=== PATIENT | female | born 1940 | race Caucasian/White ===

== ENCOUNTER 2019-06-16 18:01 | Inpatient (IN) | payer MEDICARE, MEDICAID ==
[~2019-06-16] VITALS: Ht 165.1 cm; Wt 50.0 kg
--- NOTE | 2019-06-16 19:08 | NUR ---
Patient complains of CP from the lobby. She is pulled into 19 and ekg will be performed. ACS ordered.
[2019-06-16 19:31] LABS: BASOPHILS # (AUTO) 0.1 X10'3 (0-0.2); EOSINOPHILS # (AUTO) 0.2 X10'3 (0-0.9); EOSINOPHILS % (AUTO) 2.8 % (0-6); HEMATOCRIT 34.7 % (35.0-45.0); HEMOGLOBIN 11.7 g/dl (12.0-16.0); MEAN CORPUSCULAR HEMOGLOBIN 32.7 PG (27.0-31.0); MEAN CORPUSCULAR HGB CONC 33.6 g/dL (33.0-36.5); MEAN CORPUSCULAR VOLUME 97.2 FL (78-98); MEAN PLATELET VOLUME 7.4 FL (7.4-10.4); MONOCYTES # (AUTO) 0.8 X10'3 (0-0.9); MONOCYTES % (AUTO) 8.5 % (2-12); NEUTROPHILS # (AUTO) 5.8 X10'3 (1.8-7.7); NEUTROPHILS % (AUTO) 65.7 % (42-75); PLATELET COUNT 421 X10'3 (140-440); RED BLOOD COUNT 3.57 X10'6 (4.20-5.60); RED CELL DISTRIBUTION WIDTH 12.9 % (11.5-14.5); WHITE BLOOD COUNT 8.9 X10'3 (4.5-11.0)
[2019-06-16] MEDS ORDERED: acetaminophen 325mg/10.15ml oral unit dose solution PO ONE (19:35)
[2019-06-16 19:45] LABS: PARTIAL THROMBOPLASTIN TIME 30 SECONDS (22-32)
[2019-06-16 19:47] LABS: ALANINE AMINOTRANSFERASE 23 U/L (12-78); ALBUMIN 3.6 G/DL (3.4-5.0); ALBUMIN/GLOBULIN RATIO 0.8 (1.1-1.5); ALKALINE PHOSPHATASE 163 IU/L (46-116); ANION GAP 7 (8-16); ASPARTATE AMINO TRANSFERASE 26 U/L (10-37); BILIRUBIN,TOTAL 0.1 MG/DL (0.1-1.0); BLOOD UREA NITROGEN 21 MG/DL (7-18); BUN/CREATININE RATIO 22.3 (6.6-38.0); CALCIUM 9.8 MG/DL (8.5-10.1); CHLORIDE 101 MMOL/L (99-107); CREATININE 0.94 MG/DL (0.40-0.90); GLUCOSE 94 MG/DL (70-104); POTASSIUM 4.5 MMOL/L (3.5-5.1); SODIUM 136 MMOL/L (135-145); TOTAL CARBON DIOXIDE 28.1 MMOL/L (24-32); TOTAL PROTEIN 7.9 G/DL (6.4-8.2); eGFR 57 ML/MIN
[2019-06-16] MEDS ORDERED: iohexol 350MG/ML 100ml bottle IV ONE (20:46)
[2019-06-16 21:03] LABS: CLARITY,URINE CLEAR (Clear); COLOR,URINE YELLOW (Yellow); GLUCOSE, URINE NEGATIVE (Neg); KETONES,URINE NEGATIVE (Neg); LEUKOCYTE ESTERASE ,URINE NEGATIVE (Neg); NITRITES, URINE NEGATIVE (Neg); OCCULT BLOOD,URINE SMALL (Neg); PROTEIN,URINE 100 mg/dl (Neg); UROBILINOGEN,URINE 0.2 E.U/dL (0.2-1.0)
[2019-06-16 21:07] LABS: UA COLLECTION TYPE CLN CATCH MIDSTREAM
[2019-06-16 21:15] LABS: BACTERIA,URINE 3+ /HPF (Neg); RBC,URINE 0-2 /HPF (0-2); SQUAMOUS EPITHELIAL CELL,UR FEW /LPF (FEW); WBC,URINE 0-4 /HPF (0-4)
[2019-06-16] MEDS ORDERED: SYN0.088T PO (21:33)
[2019-06-16] MEDS ORDERED: DIAZ5TAB4 PO (21:35)
[2019-06-16] MEDS ORDERED: DIAZ2TAB3 PO (21:39)
[2019-06-16] MEDS ORDERED: mag hydrox/Alum hydrox/simeth 30ml oral suspension PO PRN (22:05)
[2019-06-16] MEDS ORDERED: HYDROcodone/acetaminophen 5mg/325mg tablet PO PRN (22:05)
[2019-06-16] MEDS ORDERED: ondansetron/PF 4mg/2ml inj IV PRN (22:05)
[2019-06-16] MEDS ORDERED: magnesium hydroxide 30ml (MOM) UD suspension PO PRN (22:05)
[2019-06-16] MEDS ORDERED: acetaminophen 325mg tablet PO PRN (22:05)
--- NOTE | 2019-06-16 22:08 | NUR ---
Patient up to bedside commode with help.
[2019-06-16] MEDS: normal saline 1000ml 1,000 ML IV SCH (22:26)
[2019-06-16] MEDS: azithromycin/NS 500mg/250ml 250 ML IV SCH (22:27)
--- NOTE | 2019-06-17 00:04 | NUR ---
Patient in room PCU 3018. I have received report from Elsi MITCHELL and had the opportunity to ask questions and assume patient care.
[2019-06-17 00:05] VITALS: BP 158/83
[2019-06-17] MEDS: acetaminophen 325mg tablet PO PRN ×3 (01:48→18:01)
[2019-06-17 01:49] LABS: BASOPHILS # (AUTO) 0.1 X10'3 (0-0.2); BASOPHILS % (AUTO) 0.7 % (0-1); EOSINOPHILS # (AUTO) 0.2 X10'3 (0-0.9); EOSINOPHILS % (AUTO) 2.2 % (0-6); HEMATOCRIT 33.5 % (35.0-45.0); HEMOGLOBIN 11.2 g/dl (12.0-16.0); LYMPHOCYTES # (AUTO) 2.2 X10'3 (1.1-4.8); LYMPHOCYTES % (AUTO) 21.9 % (21-51); MEAN CORPUSCULAR HEMOGLOBIN 32.3 PG (27.0-31.0); MEAN CORPUSCULAR HGB CONC 33.5 g/dL (33.0-36.5); MEAN CORPUSCULAR VOLUME 96.5 FL (78-98); MEAN PLATELET VOLUME 7.5 FL (7.4-10.4); MONOCYTES # (AUTO) 0.9 X10'3 (0-0.9); MONOCYTES % (AUTO) 8.6 % (2-12); NEUTROPHILS # (AUTO) 6.6 X10'3 (1.8-7.7); NEUTROPHILS % (AUTO) 66.6 % (42-75); PLATELET COUNT 400 X10'3 (140-440); RED BLOOD COUNT 3.48 X10'6 (4.20-5.60)
[2019-06-17 02:00] VITALS: BP 132/80
[2019-06-17 02:01] LABS: ALBUMIN 3.3 G/DL (3.4-5.0); ANION GAP 10 (8-16); BLOOD UREA NITROGEN 16 MG/DL (7-18); BUN/CREATININE RATIO 17.2 (6.6-38.0); CALCIUM 9.7 MG/DL (8.5-10.1); CHLORIDE 103 MMOL/L (99-107); CREATININE 0.93 MG/DL (0.40-0.90); GLUCOSE 91 MG/DL (70-104); SODIUM 138 MMOL/L (135-145); TOTAL CARBON DIOXIDE 25.1 MMOL/L (24-32); eGFR 58 ML/MIN
[2019-06-17 06:00] VITALS: BP 146/78
--- NOTE | 2019-06-17 06:12 | NUR ---
Problems reprioritized. Patient report given, questions answered & plan of care reviewed with Morena MITCHELL.
--- NOTE | 2019-06-17 06:45 | NUR ---
Patient in room PCU 3018. I have received report from PAULA He and had the opportunity to ask questions and assume patient care.
[2019-06-17] MEDS: levoTHYROXINE 88mcg tablet PO SCH (08:21)
[2019-06-17] MEDS: CefTRIAXone/D5W-Rocephin 1gm 50 ML IV SCH (08:21)
[2019-06-17] MEDS: azithromycin/NS 500mg/250ml 250 ML IV SCH (09:00)
--- NOTE | 2019-06-17 11:56 | NUR ---
Message to Dr. Hernandez - Mr. Pierson RM 3010 - ABG back. CO2 is 86.00 Mr. Duarte RM [id number] - Thank you, KRYSTLE Berg ext [phone] Addendum: 06/17/19 at 1157 by Morena Vanessa RN ERROR - wrong chart
--- NOTE | 2019-06-17 15:52 | NUR ---
Malnutrition consult: Pt admit coughing blood hx lower appetite recently per consult. Pt seen by CINDY at bedside and reports low appetite but also unable to tolerate most solids r/t dentures not fitting properly and needing replacement top teeth in addition to bottom teeth left out since they don't fit. Pt reports drinks ensures TID at home for main intake trying to gain weight. Pt agrees to vanilla ensure enlive TIDWM; MD notified pending verification; vanilla ensure pudding BIDBD. Also strawberry allergy, dislikes beef and berries, requests vanilla yogurt TIDWM, and tuna w/ dao for main protein at lunches. Also reports no milk to drink. To receive chicken noodle soup tonight for dinner. Pt to receive soft to chew foods but also declines chopped and ground meats w/ gravy or additional texture modifications. Dietary notified of preferences. Son is bringing in generic ensure brand from outside as well since pt enjoys. Pt has visible severe muscle/fat wasting in addition to mild weakness and meets severe malnutrition criteria at this time; MD notified. Will monitor for ONS acceptance and PO diet tolerance. Rec: 1. continue regular diet; soft to chew foods r/t dentures 2. honor pt food preferences; see above 3. vanilla ensure enlive TIDWM pending MD verification 4. vanilla yogurt TID and vanilla ensure pudding BIDBD 5. MVI per MD approval 6. weekly wts Addendum: 06/17/19 at [address] Amended: Links added. Addendum: 06/17/19 at [address] Malnutrition consult: Pt admit coughing blood hx lower appetite recently per consult. Pt seen by RD at bedside and reports low appetite but also unable to tolerate most solids r/t dentures not fitting properly and needing replacement top teeth in addition to bottom teeth left out since they don't fit. Pt reports drinks ensures TID at home for main intake trying to gain weight. Pt agrees to vanilla ensure enlive TIDWM; MD notified pending verification; vanilla ensure pudding BIDBD. Also strawberry allergy, dislikes beef and berries, requests vanilla yogurt TIDWM, and tuna w/ dao for main protein at lunches. Also reports no milk to drink. To receive chicken noodle soup tonight for dinner. Pt to receive soft to chew foods but also declines chopped and ground meats w/ gravy or additional texture modifications. Dietary notified of preferences. Son is bringing in generic ensure brand from outside as well since pt enjoys. Pt/family provided written/verbal malnutrition ed w/ RD contact information and ONS coupons. Pt has visible severe muscle/fat wasting in addition to mild weakness and meets severe malnutrition criteria at this time; notified. Will monitor for ONS acceptance and PO diet tolerance. Rec: 1. continue regular diet; soft to chew foods r/t dentures 2. honor pt food preferences; see above 3. vanilla ensure enlive TIDWM pending MD verification 4. vanilla yogurt TID and vanilla ensure pudding BIDBD 5. MVI per MD approval 6. weekly wts
[2019-06-17 18:00] VITALS: BP 156/120
[2019-06-17] MEDS: lactose-reduced food (Ensure Enlive) - 237ml bottle PO SCH (18:00)
--- NOTE | 2019-06-17 18:16 | NUR ---
Message to Dr. Naveed Slaughter, rm 3018 B - She requests Valium. She takes 5 mg in the am and 4 mg 6 hours later for esophageal spasm. It is on her med reconciliation form. Thanks, Tracie ext [phone].
--- NOTE | 2019-06-17 18:27 | NUR ---
Problems reprioritized. Patient report given, questions answered & plan of care reviewed with [].
--- NOTE | 2019-06-17 18:37 | NUR ---
Patient in room PCU 3018. I have received report from PAULA Berg and had the opportunity to ask questions and assume patient care.
[2019-06-17] MEDS: diazepam 2mg tablet PO PRN (19:32)
[2019-06-17] MEDS: lactobacillus rhamnosus 10,000 MMU CELLS/CAPSULE PO SCH (19:32)
[2019-06-17 22:00] VITALS: BP 135/75
[2019-06-17] MEDS: normal saline 1000ml 1,000 ML IV SCH (22:46)
[2019-06-18 02:00] VITALS: BP 142/77
[2019-06-18 05:21] LABS: BASOPHILS # (AUTO) 0.1 X10'3 (0-0.2); BASOPHILS % (AUTO) 0.8 % (0-1); EOSINOPHILS # (AUTO) 0.2 X10'3 (0-0.9); EOSINOPHILS % (AUTO) 3.2 % (0-6); HEMOGLOBIN 10.9 g/dl (12.0-16.0); LYMPHOCYTES # (AUTO) 2.1 X10'3 (1.1-4.8); LYMPHOCYTES % (AUTO) 30.5 % (21-51); MEAN CORPUSCULAR HEMOGLOBIN 32.5 PG (27.0-31.0); MEAN CORPUSCULAR HGB CONC 33.1 g/dL (33.0-36.5); MEAN CORPUSCULAR VOLUME 98.3 FL (78-98); MEAN PLATELET VOLUME 7.6 FL (7.4-10.4); MONOCYTES # (AUTO) 0.6 X10'3 (0-0.9); MONOCYTES % (AUTO) 9.6 % (2-12); NEUTROPHILS # (AUTO) 3.8 X10'3 (1.8-7.7); NEUTROPHILS % (AUTO) 55.9 % (42-75); PLATELET COUNT 370 X10'3 (140-440); RED BLOOD COUNT 3.36 X10'6 (4.20-5.60); RED CELL DISTRIBUTION WIDTH 12.9 % (11.5-14.5); WHITE BLOOD COUNT 6.8 X10'3 (4.5-11.0)
[2019-06-18 05:32] LABS: ANION GAP 10 (8-16); BLOOD UREA NITROGEN 15 MG/DL (7-18); CALCIUM 9.5 MG/DL (8.5-10.1); CHLORIDE 107 MMOL/L (99-107); CREATININE 0.88 MG/DL (0.40-0.90); GLUCOSE 96 MG/DL (70-104); POTASSIUM 4.6 MMOL/L (3.5-5.1); SODIUM 143 MMOL/L (135-145); TOTAL CARBON DIOXIDE 26.4 MMOL/L (24-32); eGFR 62 ML/MIN
[2019-06-18 06:00] VITALS: BP 144/88
--- NOTE | 2019-06-18 06:29 | NUR ---
Problems reprioritized. Patient report given, questions answered & plan of care reviewed with PAULA Nichole.
--- NOTE | 2019-06-18 06:49 | NUR ---
Patient in room PCU 3018. I have received report from Marlena MITCHELL and had the opportunity to ask questions and assume patient care.
[2019-06-18] MEDS: CefTRIAXone/D5W-Rocephin 1gm 50 ML IV SCH (07:50)
[2019-06-18] MEDS: diazepam 5mg tablet PO SCH (07:50)
[2019-06-18] MEDS: levoTHYROXINE 88mcg tablet PO SCH (07:50)
[2019-06-18] MEDS: lactobacillus rhamnosus 10,000 MMU CELLS/CAPSULE PO SCH ×2 (07:50→20:23)
[2019-06-18] MEDS: azithromycin 250mg tablet PO SCH (07:51)
[2019-06-18] MEDS: lactose-reduced food (Ensure Enlive) - 237ml bottle PO SCH (08:00)
--- NOTE | 2019-06-18 08:14 | NUR ---
Pt. refused Medication Zithromax tab PO. Stating that she has an allergy to it. She was offered information including IV doses tolerated without reaction. She States that the reaction is C-Diff colitis in about 1 months time. Pharmacy is informed of this stated reaction to Zithromax.
[2019-06-18 11:00] VITALS: BP 166/86
[2019-06-18] MEDS: acetaminophen 325mg tablet PO PRN (11:09)
[2019-06-18] MEDS: normal saline 1000ml 1,000 ML IV SCH (14:06)
[2019-06-18] MEDS: diazepam 2mg tablet PO PRN ×2 (14:41→20:22)
[2019-06-18 15:00] VITALS: BP 154/86
--- NOTE | 2019-06-18 18:36 | NUR ---
Problems reprioritized. Patient report given, questions answered & plan of care reviewed with Simon MITCHELL .
[2019-06-18 19:00] VITALS: BP 135/82
[2019-06-18 23:00] VITALS: BP 142/81
[2019-06-19 03:00] VITALS: BP 138/73
[2019-06-19 05:46] LABS: BASOPHILS # (AUTO) 0.1 X10'3 (0-0.2); BASOPHILS % (AUTO) 0.9 % (0-1); EOSINOPHILS # (AUTO) 0.2 X10'3 (0-0.9); EOSINOPHILS % (AUTO) 3.8 % (0-6); HEMATOCRIT 30.5 % (35.0-45.0); HEMOGLOBIN 10.1 g/dl (12.0-16.0); LYMPHOCYTES % (AUTO) 34.9 % (21-51); MEAN CORPUSCULAR HEMOGLOBIN 32.4 PG (27.0-31.0); MEAN CORPUSCULAR HGB CONC 33.2 g/dL (33.0-36.5); MEAN CORPUSCULAR VOLUME 97.9 FL (78-98); MEAN PLATELET VOLUME 7.9 FL (7.4-10.4); MONOCYTES # (AUTO) 0.6 X10'3 (0-0.9); MONOCYTES % (AUTO) 10.5 % (2-12); NEUTROPHILS # (AUTO) 2.9 X10'3 (1.8-7.7); NEUTROPHILS % (AUTO) 49.9 % (42-75); PLATELET COUNT 348 X10'3 (140-440); RED BLOOD COUNT 3.12 X10'6 (4.20-5.60); WHITE BLOOD COUNT 5.9 X10'3 (4.5-11.0)
[2019-06-19 06:00] VITALS: BP 147/78
[2019-06-19 06:01] LABS: ALBUMIN 2.7 G/DL (3.4-5.0); ANION GAP 7 (8-16); BLOOD UREA NITROGEN 18 MG/DL (7-18); BUN/CREATININE RATIO 20.9 (6.6-38.0); CALCIUM 9.1 MG/DL (8.5-10.1); CHLORIDE 108 MMOL/L (99-107); CREATININE 0.86 MG/DL (0.40-0.90); GLUCOSE 90 MG/DL (70-104); POTASSIUM 4.4 MMOL/L (3.5-5.1); SODIUM 140 MMOL/L (135-145); TOTAL CARBON DIOXIDE 24.8 MMOL/L (24-32); eGFR 63 ML/MIN
--- NOTE | 2019-06-19 06:10 | NUR ---
Patient in room PCU 3018. I have received report from PAULA Montes and had the opportunity to ask questions and assume patient care. Patient is currently resting in bed, bed locked and low, call light in reach, no acute distress, will continue to monitor.
[2019-06-19] MEDS: CefTRIAXone/D5W-Rocephin 1gm 50 ML IV SCH (07:54)
[2019-06-19] MEDS: azithromycin 250mg tablet PO SCH (07:57)
[2019-06-19] MEDS: lactobacillus rhamnosus 10,000 MMU CELLS/CAPSULE PO SCH ×2 (07:57→20:40)
[2019-06-19] MEDS: levoTHYROXINE 88mcg tablet PO SCH (07:57)
[2019-06-19] MEDS: diazepam 5mg tablet PO SCH (07:58)
[2019-06-19] MEDS: normal saline 1000ml 1,000 ML IV SCH (10:03)
[2019-06-19 11:00] VITALS: BP 179/88
[2019-06-19] MEDS: diazepam 2mg tablet PO PRN (14:19)
[2019-06-19] MEDS: apixaban 5mg tablet PO SCH ×2 (14:22→20:00)
[2019-06-19] MEDS: acetaminophen 325mg tablet PO PRN (14:29)
[2019-06-19 15:00] VITALS: BP 187/94
--- NOTE | 2019-06-19 18:29 | NUR ---
Problems reprioritized. Patient report given, questions answered & plan of care reviewed with PAULA Torrez. Patient currently resting in bed, bed locked and low, call light in reach, stable at shift change. Patient currently resting in bed, bed locked and low, call light in reach, stable at shift change.
[2019-06-19 19:00] VITALS: BP 165/84
--- NOTE | 2019-06-19 19:20 | NUR ---
Patient in room PCU 3018. I have received report from Arely MITCHELL and had the opportunity to ask questions and assume patient care.
--- NOTE | 2019-06-19 20:57 | NUR ---
Patient refused apixaban from fear of coughing up blood again.
[2019-06-19 23:00] VITALS: BP 144/79
--- NOTE | 2019-06-20 01:57 | NUR ---
Patient has orders for 0800 abx and continuous fluids, but PIV was infiltrated on last shift and patient refused a new PIV. MD was notified by telephone and said to notify the morning MD instead. Will pass this info to AM handoff report.
[2019-06-20] MEDS: acetaminophen 325mg tablet PO PRN ×2 (04:26→11:36)
[2019-06-20 06:00] VITALS: BP 149/84
[2019-06-20] MEDS: normal saline 1000ml 1,000 ML IV SCH (06:03)
--- NOTE | 2019-06-20 06:28 | NUR ---
Patient refused vital signs at 0200.
--- NOTE | 2019-06-20 06:30 | NUR ---
Patient in room PCU 3018. I have received report from Lore MITCHELL and had the opportunity to ask questions and assume patient care.
[2019-06-20 07:03] LABS: BASOPHILS # (AUTO) 0.1 X10'3 (0-0.2); BASOPHILS % (AUTO) 0.8 % (0-1); EOSINOPHILS # (AUTO) 0.2 X10'3 (0-0.9); EOSINOPHILS % (AUTO) 2.5 % (0-6); HEMATOCRIT 31.7 % (35.0-45.0); HEMOGLOBIN 10.8 g/dl (12.0-16.0); LYMPHOCYTES # (AUTO) 2.1 X10'3 (1.1-4.8); LYMPHOCYTES % (AUTO) 26.2 % (21-51); MEAN CORPUSCULAR HEMOGLOBIN 32.9 PG (27.0-31.0); MEAN CORPUSCULAR HGB CONC 34.1 g/dL (33.0-36.5); MEAN CORPUSCULAR VOLUME 96.6 FL (78-98); MEAN PLATELET VOLUME 8.1 FL (7.4-10.4); MONOCYTES # (AUTO) 0.7 X10'3 (0-0.9); MONOCYTES % (AUTO) 8.7 % (2-12); NEUTROPHILS # (AUTO) 5.1 X10'3 (1.8-7.7); NEUTROPHILS % (AUTO) 61.8 % (42-75); PLATELET COUNT 361 X10'3 (140-440); RED BLOOD COUNT 3.28 X10'6 (4.20-5.60); RED CELL DISTRIBUTION WIDTH 12.9 % (11.5-14.5); WHITE BLOOD COUNT 8.2 X10'3 (4.5-11.0)
[2019-06-20 07:18] LABS: ANION GAP 8 (8-16); BLOOD UREA NITROGEN 18 MG/DL (7-18); BUN/CREATININE RATIO 19.1 (6.6-38.0); CALCIUM 9.4 MG/DL (8.5-10.1); CHLORIDE 104 MMOL/L (99-107); CREATININE 0.94 MG/DL (0.40-0.90); GLUCOSE 88 MG/DL (70-104); POTASSIUM 4.3 MMOL/L (3.5-5.1); SODIUM 137 MMOL/L (135-145); TOTAL CARBON DIOXIDE 25.2 MMOL/L (24-32); eGFR 57 ML/MIN
--- NOTE | 2019-06-20 07:48 | NUR ---
Problems reprioritized. Patient report given, questions answered & plan of care reviewed with Janneth MITCHELL.
[2019-06-20] MEDS: CefTRIAXone/D5W-Rocephin 1gm 50 ML IV SCH (08:00)
[2019-06-20] MEDS: azithromycin 250mg tablet PO SCH (08:40)
[2019-06-20] MEDS: apixaban 5mg tablet PO SCH (08:40)
[2019-06-20] MEDS: diazepam 5mg tablet PO SCH (08:42)
[2019-06-20] MEDS: levoTHYROXINE 88mcg tablet PO SCH (08:42)
[2019-06-20] MEDS: lactobacillus rhamnosus 10,000 MMU CELLS/CAPSULE PO SCH (08:42)
--- NOTE | 2019-06-20 09:25 | NUR ---
PIV infiltrated. Notified MD that patient did not receive IV rocephin this AM due to infiltration and pt is refusing another IV. Per MD, patient going home today.
[2019-06-20 11:00] VITALS: BP 140/79
[2019-06-20] MEDS ORDERED: LEVO500T89 PO (11:45)
[2019-06-20] MEDS ORDERED: APIX5TAB3 PO (11:45)
--- NOTE | 2019-06-20 12:37 | NUR ---
Patient stable for discharge home today with son. All DC instructions given to patient. Prescriptions called into [facility] on [address]. IV out and TELE monitor removed. All belongings sent with patient.
--- NOTE | 2019-06-20 15:30 | NUR ---
Patient called after discharging from hospital, regarding oral antibiotic Levofloxacin in pill form cannot be crushed. She requires pills to be crushed because of esophageal strictures. The pharmacist advised her to not crush this pill and to see if a oral solution could be ordered. [facility] [address] does not carry Levofloxacin in oral solution. I called around to numerous pharmacies and it was not available anywhere. [facility] pharmacist advised us of other antibiotics in oral solution form: Keflex, Augmentin, Cefdinir, Zithromax. I paged Dr. Clemente to see if he wanted to change the antibiotic, and am waiting for response.
== END 2019-06-20 12:30 | disposition home health service (06) | DRG 175 ==
LOC: ER 18:02 → PCU 3S 23:33
PROVIDERS: ADMIT Hospitalist; ATTEND Family Medicine
PROC: B32T1ZZ Computerized Tomography (CT Scan) of Left Pulmonary Artery using Low Osmolar Contrast (ICD-10-PCS; principal; 2019-06-16)
PROC: B3201ZZ Computerized Tomography (CT Scan) of Thoracic Aorta using Low Osmolar Contrast (ICD-10-PCS; 2019-06-16)
PROC: B32S1ZZ Computerized Tomography (CT Scan) of Right Pulmonary Artery using Low Osmolar Contrast (ICD-10-PCS; 2019-06-16)
DX: I26.99 Other pulmonary embolism without acute cor pulmonale (principal); J18.1 Lobar pneumonia, unspecified organism; J47.0 Bronchiectasis with acute lower respiratory infection; R04.2 Hemoptysis; K22.4 Dyskinesia of esophagus; M19.90 Unspecified osteoarthritis, unspecified site; E03.9 Hypothyroidism, unspecified; M79.7 Fibromyalgia; Z90.710 Acquired absence of both cervix and uterus; Z90.49 Acquired absence of other specified parts of digestive tract; Z90.721 Acquired absence of ovaries, unilateral; Z79.01 Long term (current) use of anticoagulants
CPT/HCPCS: 36415; 71046; 71275; 80048; 80053; 81001; 84443; 84484; 85025; 85610; 85730; 87077; 87081; 87088; 87186; 93005; 93306; 93970; 96365; 97110; 97112; 97116; 97161; 97530; 99285; G0378; J0456; J0696; J7030; Q9967

== ENCOUNTER 2019-09-28 15:47 | Emergency (ER) | payer MEDICARE, MEDICAID ==
[~2019-09-28] VITALS: Ht 152.4 cm; Wt 43.0 kg
[~2019-09-28 15:47] MED LIST: APIX5TAB3 PO; DIAZ2TAB3 PO; DIAZ5TAB4 PO; SYN0.088T PO
[2019-09-28 16:40] LABS: BASOPHILS # (AUTO) 0.1 X10'3 (0-0.2); BASOPHILS % (AUTO) 1.2 % (0-1); EOSINOPHILS # (AUTO) 0.1 X10'3 (0-0.9); EOSINOPHILS % (AUTO) 0.7 % (0-6); HEMOGLOBIN 11.6 g/dl (12.0-16.0); LYMPHOCYTES # (AUTO) 2.4 X10'3 (1.1-4.8); LYMPHOCYTES % (AUTO) 25.8 % (21-51); MEAN CORPUSCULAR HEMOGLOBIN 32.6 PG (27.0-31.0); MEAN CORPUSCULAR HGB CONC 34.1 g/dL (33.0-36.5); MEAN CORPUSCULAR VOLUME 95.6 FL (78-98); MEAN PLATELET VOLUME 8.2 FL (7.4-10.4); MONOCYTES # (AUTO) 0.8 X10'3 (0-0.9); MONOCYTES % (AUTO) 8.7 % (2-12); NEUTROPHILS # (AUTO) 5.9 X10'3 (1.8-7.7); NEUTROPHILS % (AUTO) 63.6 % (42-75); PLATELET COUNT 444 X10'3 (140-440); RED BLOOD COUNT 3.56 X10'6 (4.20-5.60); RED CELL DISTRIBUTION WIDTH 12.9 % (11.5-14.5); WHITE BLOOD COUNT 9.3 X10'3 (4.5-11.0)
[2019-09-28 16:57] LABS: ALANINE AMINOTRANSFERASE 22 U/L (12-78); ALBUMIN 3.4 G/DL (3.4-5.0); ALBUMIN/GLOBULIN RATIO 0.8 (1.1-1.5); ALKALINE PHOSPHATASE 134 IU/L (46-116); ANION GAP 9 (8-16); ASPARTATE AMINO TRANSFERASE 24 U/L (10-37); BILIRUBIN,TOTAL 0.2 MG/DL (0.1-1.0); BLOOD UREA NITROGEN 19 MG/DL (7-18); BUN/CREATININE RATIO 21.1 (6.6-38.0); CALCIUM 9.6 MG/DL (8.5-10.1); CHLORIDE 103 MMOL/L (99-107); GLUCOSE 89 MG/DL (70-104); POTASSIUM 4.4 MMOL/L (3.5-5.1); SODIUM 138 MMOL/L (135-145); TOTAL CARBON DIOXIDE 26.5 MMOL/L (24-32); TOTAL PROTEIN 7.5 G/DL (6.4-8.2); eGFR 60 ML/MIN
[2019-09-28] MEDS ORDERED: normal saline 1000ML IV soln IVB ONE (17:20)
[2019-09-28] MEDS ORDERED: acetaminophen 325mg tablet PO ONE (18:00)
[2019-09-28 20:48] VITALS: BP 158/72
== END 2019-09-28 20:12 | disposition home or self-care (01) ==
LOC: ER 15:47
DX: R07.89 Other chest pain (principal); R06.00 Dyspnea, unspecified; R51 Headache; Z90.710 Acquired absence of both cervix and uterus; Z91.018 Allergy to other foods; Z79.899 Other long term (current) drug therapy
CPT/HCPCS: 36415; 71045; 80053; 84484; 85025; 93005; 99284; J7030

== ENCOUNTER 2019-09-30 14:11 | Emergency (ER) | payer MEDICAID, MEDICARE ==
[2019-09-30] MEDS ORDERED: aspirin 81mg tab.chew PO ONE (14:20)
[2019-09-30 14:52] LABS: BASOPHILS # (AUTO) 0.1 X10'3 (0-0.2); BASOPHILS % (AUTO) 0.6 % (0-1); EOSINOPHILS # (AUTO) 0.1 X10'3 (0-0.9); EOSINOPHILS % (AUTO) 0.6 % (0-6); HEMATOCRIT 33.3 % (35.0-45.0); HEMOGLOBIN 11.2 g/dl (12.0-16.0); LYMPHOCYTES # (AUTO) 1.9 X10'3 (1.1-4.8); LYMPHOCYTES % (AUTO) 18.1 % (21-51); MEAN CORPUSCULAR HEMOGLOBIN 32.5 PG (27.0-31.0); MEAN CORPUSCULAR HGB CONC 33.7 g/dL (33.0-36.5); MEAN CORPUSCULAR VOLUME 96.6 FL (78-98); MEAN PLATELET VOLUME 7.8 FL (7.4-10.4); MONOCYTES % (AUTO) 9.2 % (2-12); NEUTROPHILS # (AUTO) 7.5 X10'3 (1.8-7.7); NEUTROPHILS % (AUTO) 71.5 % (42-75); PLATELET COUNT 463 X10'3 (140-440); RED BLOOD COUNT 3.45 X10'6 (4.20-5.60); RED CELL DISTRIBUTION WIDTH 12.8 % (11.5-14.5); WHITE BLOOD COUNT 10.5 X10'3 (4.5-11.0)
[2019-09-30 15:10] LABS: ALANINE AMINOTRANSFERASE 23 U/L (12-78); ALBUMIN 3.5 G/DL (3.4-5.0); ALBUMIN/GLOBULIN RATIO 0.9 (1.1-1.5); ALKALINE PHOSPHATASE 158 IU/L (46-116); ANION GAP 5 (8-16); ASPARTATE AMINO TRANSFERASE 24 U/L (10-37); BILIRUBIN,TOTAL 0.1 MG/DL (0.1-1.0); BLOOD UREA NITROGEN 18 MG/DL (7-18); BUN/CREATININE RATIO 17.1 (6.6-38.0); CALCIUM 9.7 MG/DL (8.5-10.1); CHLORIDE 102 MMOL/L (99-107); CREATININE 1.05 MG/DL (0.40-0.90); GLUCOSE 104 MG/DL (70-104); POTASSIUM 4.3 MMOL/L (3.5-5.1); SODIUM 138 MMOL/L (135-145); TOTAL CARBON DIOXIDE 31.1 MMOL/L (24-32); TOTAL PROTEIN 7.4 G/DL (6.4-8.2); eGFR 50 ML/MIN
[2019-09-30] MEDS ORDERED: APIX5TAB3 PO (18:06)
[2019-09-30 18:32] VITALS: BP 155/75
== END 2019-09-30 18:34 | disposition home or self-care (01) ==
LOC: ER 14:12
DX: J40 Bronchitis, not specified as acute or chronic (principal); R07.89 Other chest pain; R53.1 Weakness; Z87.01 Personal history of pneumonia (recurrent); Z90.710 Acquired absence of both cervix and uterus; Z91.018 Allergy to other foods; Z79.2 Long term (current) use of antibiotics; Z79.899 Other long term (current) drug therapy
CPT/HCPCS: 36415; 71045; 80053; 83880; 84484; 85025; 87502; 87503; 93005; 99284

== ENCOUNTER 2019-10-26 16:09 | Emergency (ER) | payer MEDICARE ==
[~2019-10-26] VITALS: Ht 152.4 cm; Wt 44.7 kg
[2019-10-26] MEDS ORDERED: normal saline 1000ML IV soln IVB ONE (16:45)
[2019-10-26] MEDS ORDERED: HYDROcodone/acetaminophen 5mg/325mg tablet PO ONE (16:45)
[2019-10-26] MEDS ORDERED: ondansetron 4mg rapidly disintigrating tab PO ONE (16:45)
[2019-10-26 17:10] LABS: BASOPHILS # (AUTO) 0.1 X10'3 (0-0.2); BASOPHILS % (AUTO) 0.5 % (0-1); EOSINOPHILS % (AUTO) 0.4 % (0-6); HEMATOCRIT 34.4 % (35.0-45.0); HEMOGLOBIN 11.6 g/dl (12.0-16.0); LYMPHOCYTES # (AUTO) 1.9 X10'3 (1.1-4.8); LYMPHOCYTES % (AUTO) 15.4 % (21-51); MEAN CORPUSCULAR HEMOGLOBIN 31.8 PG (27.0-31.0); MEAN CORPUSCULAR HGB CONC 33.7 g/dL (33.0-36.5); MEAN CORPUSCULAR VOLUME 94.5 FL (78-98); MEAN PLATELET VOLUME 7.8 FL (7.4-10.4); MONOCYTES # (AUTO) 0.8 X10'3 (0-0.9); MONOCYTES % (AUTO) 6.4 % (2-12); NEUTROPHILS # (AUTO) 9.3 X10'3 (1.8-7.7); NEUTROPHILS % (AUTO) 77.3 % (42-75); PLATELET COUNT 447 X10'3 (140-440); RED BLOOD COUNT 3.64 X10'6 (4.20-5.60); RED CELL DISTRIBUTION WIDTH 13.3 % (11.5-14.5); WHITE BLOOD COUNT 12.1 X10'3 (4.5-11.0)
[2019-10-26 17:25] LABS: ALANINE AMINOTRANSFERASE 20 U/L (12-78); ALBUMIN 3.7 G/DL (3.4-5.0); ALKALINE PHOSPHATASE 136 IU/L (46-116); ANION GAP 8 (8-16); ASPARTATE AMINO TRANSFERASE 27 U/L (10-37); BILIRUBIN,TOTAL 0.2 MG/DL (0.1-1.0); BLOOD UREA NITROGEN 19 MG/DL (7-18); BUN/CREATININE RATIO 19.4 (6.6-38.0); CALCIUM 10.3 MG/DL (8.5-10.1); CHLORIDE 103 MMOL/L (99-107); CREATININE 0.98 MG/DL (0.40-0.90); GLUCOSE 95 MG/DL (70-104); LIPASE 199 U/L (73-393); POTASSIUM 4.3 MMOL/L (3.5-5.1); SODIUM 140 MMOL/L (135-145); TOTAL CARBON DIOXIDE 28.6 MMOL/L (24-32); TOTAL PROTEIN 7.5 G/DL (6.4-8.2); eGFR 54 ML/MIN
[2019-10-26] MEDS ORDERED: acetaminophen 325mg/10.15ml oral unit dose solution PO ONE (17:45)
[2019-10-26] MEDS ORDERED: morphine 4 MG/ML inj SYRINge IV ONE (18:00)
[2019-10-26] MEDS ORDERED: PRED20TA PO (19:17)
[2019-10-26] MEDS ORDERED: AMOX-422 PO (19:17)
[2019-10-26] MEDS ORDERED: ONDA4TAB6 PO (19:18)
--- NOTE | 2019-10-26 19:21 | NUR ---
PT STATES HER BACK IS IN PAIN AND SHE WANTS A CT SCAN. PT REFUSED MORPHINE, SHE STATES SHE HAS AN ALLERGY TO IT. WHEN ASKED SHE STATES "MY BLOOD PRESSURE DROPS." PT EDUCATED THAT HYPOTENSION IS A SIDE EFFECT NOT AN ALLERGY AND THAT HER BP IS HIGH AT THIS TIME, SHE COULD POSSIBLY TOLERATE MORPHINE FOR HER PAIN 05/09. PT IS REFUSING. SHE WAS GIVEN PO TYLENOL. AWAITING FOR PROVIDER TO INSTRUCT OF CT RESULTS AND PENDING FLU SWAB RESULTS.
[2019-10-26 19:28] LABS: CLARITY,URINE CLEAR (Clear); COLOR,URINE YELLOW (Yellow); GLUCOSE, URINE NEGATIVE (Neg); KETONES,URINE NEGATIVE (Neg); LEUKOCYTE ESTERASE ,URINE NEGATIVE (Neg); NITRITES, URINE NEGATIVE (Neg); OCCULT BLOOD,URINE SMALL (Neg); PH,URINE 7.5 (4.8-8.0); PROTEIN,URINE >=300 mg/dl (Neg); UROBILINOGEN,URINE 0.2 E.U/dL (0.2-1.0)
[2019-10-26] MEDS ORDERED: TAM75C PO (19:34)
[2019-10-26 20:13] LABS: UA COLLECTION TYPE STRAIGHT CATH
[2019-10-26 20:15] LABS: BACTERIA,URINE NONE SEEN /HPF (Neg); RBC,URINE 0-2 /HPF (0-2); WBC,URINE NONE SEEN /HPF (0-4)
[2019-10-26 20:16] LABS: SQUAMOUS EPITHELIAL CELL,UR FEW /LPF (FEW)
[2019-10-26 21:37] VITALS: BP 164/84
== END 2019-10-26 21:40 | disposition home or self-care (01) ==
LOC: ER 16:09
DX: J18.9 Pneumonia, unspecified organism (principal); B34.9 Viral infection, unspecified; R10.31 Right lower quadrant pain; R10.32 Left lower quadrant pain; Z90.710 Acquired absence of both cervix and uterus; Z91.018 Allergy to other foods; Z88.1 Allergy status to other antibiotic agents; Z79.899 Other long term (current) drug therapy
CPT/HCPCS: 36415; 71045; 74176; 80053; 81001; 83605; 83690; 85025; 87502; 87503; 99284; J7030

== ENCOUNTER 2019-10-31 16:08 | Emergency (ER) | payer MEDICARE ==
[~2019-10-31] VITALS: Ht 152.4 cm; Wt 45.5 kg
[~2019-10-31 16:08] MED LIST changes: +AMOX-422 PO; +ONDA4TAB6 PO; +PRED20TA PO; +TAM75C PO
[2019-10-31] MEDS ORDERED: loperamide 2mg capsule PO ONE (16:55)
[2019-10-31] MEDS ORDERED: normal saline 1000ml 1,000 ML IV ONE (16:55)
[2019-10-31] MEDS ORDERED: ondansetron/PF 4mg/2ml inj IV ONE (16:55)
[2019-10-31 17:07] LABS: BASOPHILS # (AUTO) 0.1 X10'3 (0-0.2); EOSINOPHILS # (AUTO) 0.3 X10'3 (0-0.9); EOSINOPHILS % (AUTO) 3.2 % (0-6); HEMATOCRIT 33.1 % (35.0-45.0); HEMOGLOBIN 11.3 g/dl (12.0-16.0); LYMPHOCYTES # (AUTO) 1.8 X10'3 (1.1-4.8); LYMPHOCYTES % (AUTO) 17.6 % (21-51); MEAN CORPUSCULAR HEMOGLOBIN 32.3 PG (27.0-31.0); MEAN CORPUSCULAR HGB CONC 34.1 g/dL (33.0-36.5); MEAN CORPUSCULAR VOLUME 94.8 FL (78-98); MEAN PLATELET VOLUME 8.2 FL (7.4-10.4); MONOCYTES # (AUTO) 0.7 X10'3 (0-0.9); MONOCYTES % (AUTO) 6.9 % (2-12); NEUTROPHILS # (AUTO) 7.3 X10'3 (1.8-7.7); NEUTROPHILS % (AUTO) 71.3 % (42-75); PLATELET COUNT 381 X10'3 (140-440); RED BLOOD COUNT 3.49 X10'6 (4.20-5.60); RED CELL DISTRIBUTION WIDTH 13.3 % (11.5-14.5); WHITE BLOOD COUNT 10.2 X10'3 (4.5-11.0)
[2019-10-31 17:14] LABS: ALANINE AMINOTRANSFERASE 21 U/L (12-78); ALBUMIN 3.6 G/DL (3.4-5.0); ALKALINE PHOSPHATASE 127 IU/L (46-116); ANION GAP 9 (8-16); ASPARTATE AMINO TRANSFERASE 25 U/L (10-37); BILIRUBIN,TOTAL 0.3 MG/DL (0.1-1.0); BLOOD UREA NITROGEN 17 MG/DL (7-18); BUN/CREATININE RATIO 16.5 (6.6-38.0); CHLORIDE 103 MMOL/L (99-107); CREATININE 1.03 MG/DL (0.40-0.90); GLUCOSE 101 MG/DL (70-104); LIPASE 165 U/L (73-393); SODIUM 137 MMOL/L (135-145); TOTAL CARBON DIOXIDE 24.9 MMOL/L (24-32); TOTAL PROTEIN 7.3 G/DL (6.4-8.2); eGFR 51 ML/MIN
--- NOTE | 2019-10-31 17:17 | NUR ---
Pt stated that she has difficulty swallowing pills.
[2019-10-31 18:03] LABS: CLARITY,URINE CLEAR (Clear); COLOR,URINE YELLOW (Yellow); GLUCOSE, URINE NEGATIVE (Neg); KETONES,URINE NEGATIVE (Neg); LEUKOCYTE ESTERASE ,URINE NEGATIVE (Neg); NITRITES, URINE NEGATIVE (Neg); OCCULT BLOOD,URINE MODERATE (Neg); PH,URINE 6.5 (4.8-8.0); PROTEIN,URINE 100 mg/dl (Neg); UROBILINOGEN,URINE 0.2 E.U/dL (0.2-1.0)
[2019-10-31 18:08] LABS: UA COLLECTION TYPE STRAIGHT CATH; WBC,URINE 0-4 /HPF (0-4)
[2019-10-31 18:09] LABS: BACTERIA,URINE NONE SEEN /HPF (Neg); MUCUS STRANDS FEW /LPF (Neg); SQUAMOUS EPITHELIAL CELL,UR NONE SEEN /LPF (FEW)
[2019-10-31 19:16] VITALS: BP 138/61
[2019-10-31] MEDS ORDERED: METR500T PO (19:25)
--- NOTE | 2019-11-01 14:54 | NUR ---
REQUESTED TO CALL PT BY THE PA TO FOLLOWUP ON DIARRHEA FROM YESTERDAYS VISIT. CALL WITH TO [employer] MAIL AND MSG LEFT, PROVIDER NOTIFED
== END 2019-10-31 20:08 | disposition home or self-care (01) ==
LOC: ER 16:09
DX: R19.7 Diarrhea, unspecified (principal); R10.31 Right lower quadrant pain; R10.32 Left lower quadrant pain; Z90.710 Acquired absence of both cervix and uterus; Z91.018 Allergy to other foods; Z79.899 Other long term (current) drug therapy
CPT/HCPCS: 36415; 80053; 81001; 83690; 85025; 96361; 96374; 99284; J2405; J7030

== ENCOUNTER 2022-03-09 13:09 | Inpatient (IN) | payer MEDICARE, MEDICAID ==
[~2022-03-09] VITALS: Ht 149.9 cm; Wt 60.1 kg
[~2022-03-09 13:09] MED LIST changes: -AMOX-422 PO; -PRED20TA PO; -TAM75C PO
[2022-03-09] MEDS ORDERED: LIDOcaine 2% 10ml TOPICAL JELLY (Urojet) TP ONE ×2 (13:45→15:50)
[2022-03-09] MEDS ORDERED: CefTRIAXone 2gm/NS 100ml IVPB 100 ML IV ONE (14:05)
[2022-03-09] MEDS ORDERED: normal saline 1000ML IV soln IVB ONE ×2 (14:40→15:25)
[2022-03-09 14:47] LABS: BASOPHILS % (AUTO) 0 % (0-1); EOSINOPHILS % (AUTO) 0 % (0-6); HEMATOCRIT 28.1 % (35.0-45.0); HEMOGLOBIN 8.6 g/dl (12.0-16.0); LYMPHOCYTES # (AUTO) 0.6 X10'3 (1.1-4.8); LYMPHOCYTES % (AUTO) 1.6 % (21-51); MEAN CORPUSCULAR HEMOGLOBIN 26.6 PG (27.0-31.0); MEAN CORPUSCULAR HGB CONC 30.6 g/dL (33.0-36.5); MEAN CORPUSCULAR VOLUME 86.7 FL (78-98); MEAN PLATELET VOLUME 7.4 FL (7.4-10.4); MONOCYTES # (AUTO) 1.4 X10'3 (0-0.9); MONOCYTES % (AUTO) 3.7 % (2-12); NEUTROPHILS # (AUTO) 36.4 X10'3 (1.8-7.7); NEUTROPHILS % (AUTO) 94.7 % (42-75); PLATELET COUNT 599 X10'3 (140-440); RED BLOOD COUNT 3.24 X10'6 (4.20-5.60); RED CELL DISTRIBUTION WIDTH 16.9 % (11.5-14.5)
[2022-03-09 14:50] LABS: CLARITY,URINE SLIGHTLY CLOUDY (Clear); COLOR,URINE YELLOW (Yellow); GLUCOSE, URINE NEGATIVE (Neg); KETONES,URINE NEGATIVE (Neg); LEUKOCYTE ESTERASE ,URINE NEGATIVE (Neg); NITRITES, URINE NEGATIVE (Neg); OCCULT BLOOD,URINE LARGE (Neg); PROTEIN,URINE 100 mg/dl (Neg); UROBILINOGEN,URINE 0.2 E.U/dL (0.2-1.0)
[2022-03-09 14:51] LABS: WHITE BLOOD COUNT 38.5 X10'3 (4.5-11.0)
[2022-03-09 14:54] LABS: UA COLLECTION TYPE FOLEY CATH
[2022-03-09] MEDS ORDERED: methylPREDNISolone sod succ 125mg/2ml vial IV ONE (14:55)
[2022-03-09] MEDS ORDERED: ipratropium/albuterol 3ml nebule NEB ONE (14:55)
[2022-03-09 14:58] LABS: SQUAMOUS EPITHELIAL CELL,UR MANY /LPF (FEW)
[2022-03-09 15:04] LABS: BACTERIA,URINE 1+ /HPF (Neg); RBC,URINE 20-50 /HPF (0-2)
[2022-03-09 15:05] LABS: TRANSITIONAL EPI CELLS,URINE FEW /HPF
[2022-03-09 15:05] LABS: ALANINE AMINOTRANSFERASE 59 U/L (12-78); ALBUMIN/GLOBULIN RATIO 0.4 (1.1-1.5); ALKALINE PHOSPHATASE 185 IU/L (46-116); ANION GAP 15 (8-16); ASPARTATE AMINO TRANSFERASE 112 U/L (10-37); BILIRUBIN,TOTAL 0.4 MG/DL (0.1-1.0); BLOOD UREA NITROGEN 129 MG/DL (7-18); BUN/CREATININE RATIO 26.3 (6.6-38.0); CALCIUM 9.6 MG/DL (8.5-10.1); CHLORIDE 104 MMOL/L (99-107); CREATININE 4.91 MG/DL (0.40-0.90); GLUCOSE 98 MG/DL (70-104); POTASSIUM 5.2 MMOL/L (3.5-5.1); SODIUM 139 MMOL/L (135-145); TOTAL CARBON DIOXIDE 20.4 MMOL/L (24-32); TOTAL PROTEIN 7.1 G/DL (6.4-8.2); eGFR 8 ML/MIN
[2022-03-09 15:12] LABS: AMORPHOUS URATES 2+
[2022-03-09 15:20] LABS: ANISOCYTOSIS 1+; PLATELET ESTIMATE INCREASED; TOTAL CELLS COUNTED 100
[2022-03-09 15:21] LABS: HYPOCHROMASIA 1+
[2022-03-09 15:46] LABS: ABG BASE EXCESS -13.8 mmol/L (-2.0-2.0); ABG HCO3 15.3 mmol/L (22.0-26.0); ABG OXYGEN SATURATION 94.3 % (94-97); ABG PCO2 (T) 51.2 mmHg (32.0-45.0); FCOHb 0.1 % (0.0-3.9); FMetHb 0.2 % (0.0-1.5); PATIENT TEMPERATURE 36.8; TOTAL HEMOGLOBIN 8.5 G/dl (12.0-16.0)
[2022-03-09] MEDS ORDERED: magnesium hydroxide 30ml (MOM) UD suspension PO PRN (15:50)
[2022-03-09] MEDS ORDERED: potassium CL 10mEq/100ml bag 100 ML IV PRN (15:50)
[2022-03-09] MEDS ORDERED: potassium Cl 20mEq/100mL bag 100 ML IV PRN (15:50)
[2022-03-09] MEDS ORDERED: magnesium 2GM in 50ml NS 50 ML IV PRN (15:50)
[2022-03-09] MEDS ORDERED: ondansetron/PF 4mg/2ml inj IV PRN (15:50)
[2022-03-09] MEDS ORDERED: magnesium 4gm in 100ml NS 100 ML IV PRN (15:50)
[2022-03-09] MEDS ORDERED: albuterol 2.5 MG/3 ML nebule NEB PRN (15:50)
[2022-03-09] MEDS ORDERED: POTASSIUM BICARB 20meq eff tab 20 MEQ TABLET.EFF PO PRN ×2 (15:50)
[2022-03-09] MEDS ORDERED: acetaminophen 325mg tablet PO PRN ×2 (15:50)
[2022-03-09] MEDS ORDERED: bisacodyl 10mg suppository rectal RC PRN (15:50)
--- NOTE | 2022-03-09 16:40 | NUR ---
SOFTWARE DEVELOPMENT MANAGER AT BEDSIDE.
--- NOTE | 2022-03-09 16:51 | NUR ---
TO CT SCAN.
[2022-03-09] MEDS ORDERED: normal saline 1000ml 1,000 ML IV SCH (17:00)
[2022-03-09 18:41] LABS: CREATINE KINASE 915 U/L (26-192)
[2022-03-09] MEDS ORDERED: vancomycin/NS 1 GM ADD-VANTAGE 250 ML X 1 DOSE IV PRN (18:50)
[2022-03-09] MEDS ORDERED: furosemide 10 MG/1 ML 10ml inj IV ONE (18:50)
[2022-03-09] MEDS: ringers solution, lacted 1,000 ML IV SCH (18:58)
[2022-03-09] MEDS ORDERED: vancomycin/NS 1 GM ADD-VANTAGE 250 ML IV SCH (19:00)
[2022-03-09 19:06] LABS: ABG BASE EXCESS -13.9 mmol/L (-2.0-2.0); ABG HCO3 14.8 mmol/L (22.0-26.0); ABG OXYGEN SATURATION 92.5 % (94-97); ABG PCO2 (T) 45.5 mmHg (32.0-45.0); ABG PO2 (T) 76.2 mmHg (75.0-100.0); ALLEN'S TEST POSITIVE; FCOHb 0.2 % (0.0-3.9); FLOW 40 L/min; FMetHb 0.1 % (0.0-1.5); FO2Hb 92.2 % (94-97); PATIENT TEMPERATURE 36.7; TOTAL HEMOGLOBIN 10.3 G/dl (12.0-16.0)
[2022-03-09] MEDS ORDERED: succinylcholine 20mg/ml inj IV ONE (19:21)
--- NOTE | 2022-03-09 19:30 | NUR ---
Patient observed having agonal and shallow breathing since this advertising copywriter came on shift at 1830. Patient appeared to not be taking in appropriate breaths. ABG drawn and senior quality assurance analyst consulted, given VO to intubate patient. Dr. El consulted and patient intubated at 1930. Etomidate and Rocuronium used for intubation. RT at [facility]. Patient became hypotensive following intubation, levophed started.
--- NOTE | 2022-03-09 19:34 | NUR ---
CALL JACE MAHAJAN TO UPDATE THE POC AT [phone].
[2022-03-09 19:45] VITALS: BP 63/42
[2022-03-09] MEDS: NORepinephrine 8mg/ 250ml NS 250 ML IV PRN (19:46)
[2022-03-09] MEDS: heparin, porcine 5000 units/ml vial SQ SCH (20:08)
[2022-03-09] MEDS: cefepime 1GM/NS ADD-VANTAGE 100 ML IV SCH (20:23)
--- NOTE | 2022-03-09 20:33 | NUR ---
[facility] Magistrate has been paged three times at this point to obtain orders for continued IV sedation. [address] Magistrate not picking up phone. Confirmed with hospital staff multiple times that correct number is on file.
--- NOTE | 2022-03-09 20:54 | NUR ---
Printer Slotter Helper attempted to be called multiple additional times. No response. supervisor agricultural education made aware. Dr. El consulted and given VO for Versed and Fentanyl.
[2022-03-09] MEDS ORDERED: midazolam 100mg in NS 100ml 100 ML IV PRN (20:55)
[2022-03-09] MEDS ORDERED: fentaNYL 50mcg/ml PF inj. 2,500 MCG in normal saline 250ml IV soln 200 ML IV SCH ×2 (20:55→21:04)
[2022-03-09 21:02] LABS: ABG BASE EXCESS -12.6 mmol/L (-2.0-2.0); ABG HCO3 14.7 mmol/L (22.0-26.0); ABG OXYGEN SATURATION 96.7 % (94-97); ABG PCO2 (T) 38.2 mmHg (32.0-45.0); ABG PO2 (T) 95.7 mmHg (75.0-100.0); ALLEN'S TEST POSITIVE; FCOHb 0.2 % (0.0-3.9); FMetHb 0.1 % (0.0-1.5); FO2Hb 96.4 % (94-97); PATIENT TEMPERATURE 36.7; PEEP 5 cm H2O; RESPIRATORY RATE 24 b/min; TIDAL VOLUME 375 mL; TOTAL HEMOGLOBIN 9.7 G/dl (12.0-16.0)
[2022-03-09 21:03] VITALS: BP 126/67
[2022-03-09 22:00] VITALS: BP 85/46
[2022-03-09] MEDS: FENTANYL-0.9 % NACL/PF 100 ML IV SCH (22:06)
[2022-03-09 22:35] VITALS: BP 96/44
[2022-03-09 23:00] VITALS: BP 84/44
[2022-03-10] VITALS (35 sets, daily range): BP systolic 76–124; BP diastolic 38–59
[2022-03-10] MEDS: metroNIDAZOLE-Flagyl 500mg/NS 100 ML IV SCH ×3 (00:16→15:29)
[2022-03-10] MEDS: sodium bicarbonate (8.4%) inj. 150 MEQ in dextrose 5%-water 1,000 ML IV SCH ×2 (01:24→14:05)
[2022-03-10] MEDS ORDERED: albumin (Human) 5% 250ml 250 ML IV ONE ×2 (01:45)
[2022-03-10] MEDS ORDERED: hydrocortisone sod succ/PF 100mg/2ml inj. IV ONE (01:45)
--- NOTE | 2022-03-10 02:30 | NUR ---
fecal disimpaction done, moderate amounts of hard formed stools removed
--- NOTE | 2022-03-10 02:36 | NUR ---
2130: I have received report from Barron MITCHELL and had the opportunity to ask questions and assume patient care. 2220: patient in room 2012. Called Dr Nicolas at 2330 to clarify orders and received new ones 0130: patient needing increased levophed, urine output decreasing and becoming more tachycardic, Dr Nicolas was called and made aware of patient condition and received new orders.
[2022-03-10 02:46] LABS: BASOPHILS % (AUTO) 0 % (0-1); EOSINOPHILS # (AUTO) 0.1 X10'3 (0-0.9); EOSINOPHILS % (AUTO) 0.4 % (0-6); HEMATOCRIT 26.3 % (35.0-45.0); HEMOGLOBIN 8.3 g/dl (12.0-16.0); LYMPHOCYTES # (AUTO) 0.5 X10'3 (1.1-4.8); LYMPHOCYTES % (AUTO) 2.4 % (21-51); MEAN CORPUSCULAR HEMOGLOBIN 27.8 PG (27.0-31.0); MEAN CORPUSCULAR HGB CONC 31.6 g/dL (33.0-36.5); MEAN CORPUSCULAR VOLUME 87.8 FL (78-98); MEAN PLATELET VOLUME 7.6 FL (7.4-10.4); MONOCYTES # (AUTO) 0.3 X10'3 (0-0.9); MONOCYTES % (AUTO) 1.3 % (2-12); NEUTROPHILS # (AUTO) 20.2 X10'3 (1.8-7.7); NEUTROPHILS % (AUTO) 95.9 % (42-75); PLATELET COUNT 458 X10'3 (140-440); RED BLOOD COUNT 2.99 X10'6 (4.20-5.60); RED CELL DISTRIBUTION WIDTH 17.6 % (11.5-14.5); WHITE BLOOD COUNT 21.1 X10'3 (4.5-11.0)
[2022-03-10] MEDS: vasopressin inj. 40 UNIT in dextrose 5%-water 50ml 38 ML IV SCH (02:55)
[2022-03-10 03:01] LABS: ABG BASE EXCESS -13.8 mmol/L (-2.0-2.0); ABG HCO3 13.9 mmol/L (22.0-26.0); ABG OXYGEN SATURATION 97.3 % (94-97); ABG PCO2 (T) 40.3 mmHg (32.0-45.0); ABG PO2 (T) 106.6 mmHg (75.0-100.0); FCOHb 0.2 % (0.0-3.9); FMetHb 0.5 % (0.0-1.5); FO2Hb 96.6 % (94-97); PATIENT TEMPERATURE 37.5; PEEP 8 cm H2O; RESPIRATORY RATE 24 b/min; TIDAL VOLUME 350 mL
[2022-03-10 03:02] LABS: ALBUMIN 1.2 G/DL (3.4-5.0); ANION GAP 16 (8-16); BLOOD UREA NITROGEN 118 MG/DL (7-18); BUN/CREATININE RATIO 29.5 (6.6-38.0); CALCIUM 8.3 MG/DL (8.5-10.1); CHLORIDE 113 MMOL/L (99-107); GLUCOSE 94 MG/DL (70-104); MAGNESIUM 2.1 MG/DL (1.5-2.4); PHOSPHORUS 6.1 MG/DL (2.3-4.5); POTASSIUM 4.7 MMOL/L (3.5-5.1); SODIUM 144 MMOL/L (135-145); TOTAL CARBON DIOXIDE 15.2 MMOL/L (24-32); VANCOMYCIN,RANDOM 20.3 UG/ML; eGFR 11 ML/MIN
[2022-03-10 03:10] LABS: OXYGEN SATURATION (MIXED VEN) 79.7 % (60-80); PO2 MIXED VENOUS (TEMP COR) 47.9 mmHg (35-46)
[2022-03-10] MEDS ORDERED: rocuronium 10mg/ml inj IV ONE (03:35)
[2022-03-10] MEDS ORDERED: etomidate 2mg/ml inj. ONE (03:35)
[2022-03-10] MEDS: NORepinephrine 8mg/ 250ml NS 250 ML IV PRN ×2 (05:25→17:46)
[2022-03-10] MEDS: ringers solution, lacted 1,000 ML IV SCH (05:26)
[2022-03-10 05:27] LABS: PLATELET ESTIMATE INCREASED; TOTAL CELLS COUNTED 100
[2022-03-10 05:28] LABS: ANISOCYTOSIS 1+
[2022-03-10 05:32] LABS: LARGE PLATELETS FEW
--- NOTE | 2022-03-10 06:16 | NUR ---
Problems reprioritized. Patient report given to Abida MITCHELL, questions answered & plan of care reviewed with .
[2022-03-10] MEDS: hydrocortisone sod succ/PF 100mg/2ml inj. IV SCH ×3 (07:26→20:21)
[2022-03-10] MEDS: heparin, porcine 5000 units/ml vial SQ SCH ×2 (07:27→20:21)
[2022-03-10] MEDS ORDERED: famotidine/PF 10 mg/ml inj IV SCH (08:00)
[2022-03-10] MEDS ORDERED: K and/or MAG REPLACEMENT MC SCH (08:00)
[2022-03-10] MEDS: cefepime 1GM/NS ADD-VANTAGE 100 ML IV SCH (08:37)
--- NOTE | 2022-03-10 08:48 | NUR ---
Dr. Duran rounded and ordered for a sputum sample to be sent and to stop the LR.
--- NOTE | 2022-03-10 10:40 | NUR ---
Initial: Pt brought in after being found down, admit for bilat PNA, acute renal failure, sepsis, and acute hypoxic and hypercapnic respiratory failure. Pt currently intubated and with and OGT in place per EMR though no TF consult at this time. Will place TF recommendations below for if expected prolonged intubation and to receive nutrition support. Noted pt with a low BMI using scaled weight. Unable to obtain information from pt d/t intubation and per MD note patient's son who was caring for pt just . Noted pt with reported and wt hx from 5164-6852 in EMR that resulted in a low BMI for age. Pt possibly chronically underweight. LBM 03/10, with moderate amounts of hard formed stools removed from fecal disimpaction per RN note. Will continue to follow closely. Recommendations: 1) IF TF, continuous Vital AF with 55 mL/hr goal. Begin at 25 mL/hr and advance by 30 mL Q8H as tolerated to goal rate. To provide 1320 mL total volume/day, 1584 kcal, 99 g protein, and 1071 mL water 2) IF TF, additional 85 mL water flush Q4H 3) IF TF, prealbumin q Saturday/; daily scaled weights 4) Routine bowel care Addendum: 03/10/22 at [address] Amended: Links added.
--- NOTE | 2022-03-10 11:50 | NUR ---
Report received from PAULA Tai. Assumed care of patient.
[2022-03-10 15:54] LABS: UA COLLECTION TYPE FOLEY CATH
[2022-03-10 15:55] LABS: CLARITY,URINE SLIGHTLY CLOUDY (Clear); COLOR,URINE YELLOW (Yellow); GLUCOSE, URINE NEGATIVE (Neg); KETONES,URINE NEGATIVE (Neg); LEUKOCYTE ESTERASE ,URINE NEGATIVE (Neg); NITRITES, URINE NEGATIVE (Neg); OCCULT BLOOD,URINE MODERATE (Neg); PROTEIN,URINE 30 mg/dl (Neg); UROBILINOGEN,URINE 0.2 E.U/dL (0.2-1.0)
[2022-03-10 16:05] LABS: TOTAL PROTEIN,URINE RANDOM 131.5 MG/DL
[2022-03-10 16:07] LABS: AMORPHOUS URATES 2+; BACTERIA,URINE FEW /HPF (Neg); FINE GRANULAR CAST 0-3 /LPF (NEGATIVE); SQUAMOUS EPITHELIAL CELL,UR FEW /LPF (FEW); WBC,URINE NONE SEEN /HPF (0-4)
[2022-03-10 16:32] LABS: UA EOSINOPHILS RARE EOS /HPF
[2022-03-10] MEDS: bumetanide 0.25mg/ml 4ml vial IV SCH (17:45)
--- NOTE | 2022-03-10 18:15 | NUR ---
Report given to PAULA Thapa
[2022-03-10] MEDS: FENTANYL-0.9 % NACL/PF 100 ML IV SCH (23:50)
[2022-03-11] VITALS (38 sets, daily range): BP systolic 87–135; BP diastolic 42–62
[2022-03-11] MEDS: metroNIDAZOLE-Flagyl 500mg/NS 100 ML IV SCH ×3 (00:12→16:26)
[2022-03-11] MEDS: sodium bicarbonate (8.4%) inj. 150 MEQ in dextrose 5%-water 1,000 ML IV SCH ×2 (02:23→13:57)
[2022-03-11] MEDS: hydrocortisone sod succ/PF 100mg/2ml inj. IV SCH ×4 (02:56→20:13)
[2022-03-11 03:10] LABS: BASOPHILS # (AUTO) 0.1 X10'3 (0-0.2); BASOPHILS % (AUTO) 0.2 % (0-1); EOSINOPHILS % (AUTO) 0.1 % (0-6); LYMPHOCYTES # (AUTO) 0.4 X10'3 (1.1-4.8); LYMPHOCYTES % (AUTO) 0.9 % (21-51); MEAN CORPUSCULAR HEMOGLOBIN 27.6 PG (27.0-31.0); MEAN CORPUSCULAR HGB CONC 32.4 g/dL (33.0-36.5); MEAN CORPUSCULAR VOLUME 85.4 FL (78-98); MEAN PLATELET VOLUME 8.2 FL (7.4-10.4); MONOCYTES # (AUTO) 0.6 X10'3 (0-0.9); MONOCYTES % (AUTO) 1.5 % (2-12); NEUTROPHILS # (AUTO) 40.6 X10'3 (1.8-7.7); NEUTROPHILS % (AUTO) 97.3 % (42-75); PLATELET COUNT 293 X10'3 (140-440); RED BLOOD COUNT 2.49 X10'6 (4.20-5.60); RED CELL DISTRIBUTION WIDTH 17.5 % (11.5-14.5)
[2022-03-11 03:28] LABS: ALBUMIN 1.5 G/DL (3.4-5.0); ANION GAP 11 (8-16); BLOOD UREA NITROGEN 104 MG/DL (7-18); BUN/CREATININE RATIO 29.4 (6.6-38.0); CHLORIDE 107 MMOL/L (99-107); CREATININE 3.54 MG/DL (0.40-0.90); GLUCOSE 195 MG/DL (70-104); MAGNESIUM 1.8 MG/DL (1.5-2.4); PHOSPHORUS 4.7 MG/DL (2.3-4.5); POTASSIUM 3.8 MMOL/L (3.5-5.1); SODIUM 142 MMOL/L (135-145); TOTAL CARBON DIOXIDE 24.4 MMOL/L (24-32); VANCOMYCIN,RANDOM 13.9 UG/ML; eGFR 12 ML/MIN
[2022-03-11 03:47] LABS: WHITE BLOOD COUNT 41.7 X10'3 (4.5-11.0)
[2022-03-11 03:48] LABS: HEMATOCRIT 21.2 % (35.0-45.0); HEMOGLOBIN 6.9 g/dl (12.0-16.0)
[2022-03-11 03:49] LABS: ABG BASE EXCESS -1.3 mmol/L (-2.0-2.0); ABG HCO3 23.4 mmol/L (22.0-26.0); ABG OXYGEN SATURATION 91.5 % (94-97); ABG PCO2 (T) 38.4 mmHg (32.0-45.0); ABG PO2 (T) 61.4 mmHg (75.0-100.0); ALLEN'S TEST Modified; FCOHb 0.3 % (0.0-3.9); FMetHb 0.7 % (0.0-1.5); FO2Hb 90.6 % (94-97); PATIENT TEMPERATURE 36.7; PEEP 8 cm H2O; RESPIRATORY RATE 24 b/min; TIDAL VOLUME 350 mL; TOTAL HEMOGLOBIN 7.6 G/dl (12.0-16.0)
[2022-03-11] MEDS: VANCOMYCIN LEVEL IV SCH (04:16)
[2022-03-11 06:40] LABS: ANISOCYTOSIS 1+; PLATELET ESTIMATE NORMAL; TOTAL CELLS COUNTED 100
[2022-03-11] MEDS: ipratropium/albuterol 3ml nebule NEB PRN ×2 (07:16→15:51)
[2022-03-11] MEDS ORDERED: cefepime 1GM/NS ADD-VANTAGE 100 ML IV SCH (08:00)
[2022-03-11] MEDS ORDERED: dextrose 50%-water 50ml dispensing syringe IV PRN (08:35)
[2022-03-11] MEDS ORDERED: DEXTROSE 15 GM of carb/4 tabs (each vial/BOTTLE has 4 tablets) PO PRN ×2 (08:35)
[2022-03-11] MEDS ORDERED: MESSAGE TO PHARMACY PO ONE (08:35)
[2022-03-11] MEDS ORDERED: glucagon, human recombinant 1mg kit SUBCUT PRN (08:35)
--- NOTE | 2022-03-11 08:42 | NUR ---
TF consult: See recs below. Noted pt has been started on NaBicarb/D5 at 100ml/hr providing additional 408kcals/day. Recommend changing to non dextrose containing solution per MD discretion if medically feasible once TF initiated. Recommendations: 1) Continuous TF using Vital AF with 55 mL/hr goal. Begin at 25 mL/hr and advance by 30 mL Q8H as tolerated to goal rate. To provide 1320 mL total volume/day, 1584 kcal, 99 g protein, and 1071 mL water 2) Additional 85 mL water flush Q4H 3) Prealbumin q Saturday/; daily scaled weights 4) Routine bowel care Addendum: 03/11/22 at [address] Amended: Links added.
[2022-03-11] MEDS: heparin, porcine 5000 units/ml vial SQ SCH ×2 (08:49→20:13)
[2022-03-11] MEDS: famotidine/PF 10 mg/ml inj IV SCH (08:49)
[2022-03-11] MEDS: CEFEPIME IV SCH (08:50)
[2022-03-11] MEDS: NORMAL SALINE IV SCH (08:50)
[2022-03-11] MEDS: NORepinephrine 8mg/ 250ml NS 250 ML IV PRN (10:28)
[2022-03-11] MEDS ORDERED: vancomycin/NS 1 GM ADD-VANTAGE 250 ML X 1 DOSE IV ONE (11:00)
--- NOTE | 2022-03-11 12:38 | NUR ---
0800- Spoke with daughter and received consent to transfuse blood products. Discussed code status and potential outcomes. Daughter agreed to DNR but reversed her decision. 0900- Reported to MD +nasal swab for MRSA and +blood culture on gram positive cocci in clusters , no site indicated. Plan is for CT of chest, abdomen, and pelvis.
[2022-03-11] MEDS: insulin regular, human U-100 3ml vial - multi-dose SQ SCH ×2 (14:10→20:33)
[2022-03-11] MEDS ORDERED: albumin (Human) 5% 250ml 250 ML IV ONE (15:05)
--- NOTE | 2022-03-11 16:13 | NUR ---
1515- run of VT, HR 168, resolved and now in afib. made aware. Reported LA of 4.7, dose with 5% albumin 250 cc x 1, recheck LA and H&H after
[2022-03-11] MEDS: bumetanide 0.25mg/ml 4ml vial IV SCH (16:26)
[2022-03-11 16:57] LABS: HEMOGLOBIN 8.4 g/dl (12.0-16.0); MEAN CORPUSCULAR HEMOGLOBIN 28.2 PG (27.0-31.0); MEAN CORPUSCULAR HGB CONC 33.4 g/dL (33.0-36.5); MEAN CORPUSCULAR VOLUME 84.4 FL (78-98); MEAN PLATELET VOLUME 7.9 FL (7.4-10.4); PLATELET COUNT 234 X10'3 (140-440); RED BLOOD COUNT 2.96 X10'6 (4.20-5.60); RED CELL DISTRIBUTION WIDTH 16.1 % (11.5-14.5)
[2022-03-11 17:00] LABS: WHITE BLOOD COUNT 42.3 X10'3 (4.5-11.0)
--- NOTE | 2022-03-11 17:01 | NUR ---
1700- Spoke with daughter on the phone, relayed the episode of SVT and if it happens again and sustains that we would need to shock her and potentially she could need CPR. Daughter does not want that. Confirmed wishes with second nurse, Gilbert Milton MD, status changed to DNR. 1705- WBC 42.3, slight increase from AM draw.
[2022-03-11] MEDS: insulin glargine (Lantus) pen - multi-dose SQ SCH (20:35)
[2022-03-12] VITALS (31 sets, daily range): BP systolic 90–145; BP diastolic 49–74
[2022-03-12] MEDS: metroNIDAZOLE-Flagyl 500mg/NS 100 ML IV SCH ×3 (00:12→16:55)
[2022-03-12] MEDS: FENTANYL-0.9 % NACL/PF 100 ML IV SCH ×2 (00:20→22:24)
[2022-03-12] MEDS: hydrocortisone sod succ/PF 100mg/2ml inj. IV SCH ×4 (01:57→20:08)
[2022-03-12] MEDS: insulin regular, human U-100 3ml vial - multi-dose SQ SCH ×4 (02:08→20:23)
[2022-03-12] MEDS: vasopressin inj. 40 UNIT in dextrose 5%-water 50ml 38 ML IV SCH (02:45)
[2022-03-12] MEDS: VANCOMYCIN LEVEL IV SCH (03:00)
[2022-03-12 03:02] LABS: BASOPHILS % (AUTO) 0.1 % (0-1); EOSINOPHILS % (AUTO) 0 % (0-6); HEMATOCRIT 24.9 % (35.0-45.0); HEMOGLOBIN 8.1 g/dl (12.0-16.0); LYMPHOCYTES # (AUTO) 0.5 X10'3 (1.1-4.8); LYMPHOCYTES % (AUTO) 1.2 % (21-51); MEAN CORPUSCULAR HEMOGLOBIN 27.3 PG (27.0-31.0); MEAN CORPUSCULAR HGB CONC 32.5 g/dL (33.0-36.5); MEAN CORPUSCULAR VOLUME 83.8 FL (78-98); MEAN PLATELET VOLUME 8.2 FL (7.4-10.4); MONOCYTES # (AUTO) 0.3 X10'3 (0-0.9); MONOCYTES % (AUTO) 0.8 % (2-12); NEUTROPHILS % (AUTO) 97.9 % (42-75); PLATELET COUNT 206 X10'3 (140-440); RED BLOOD COUNT 2.97 X10'6 (4.20-5.60); RED CELL DISTRIBUTION WIDTH 16.7 % (11.5-14.5)
[2022-03-12] MEDS: sodium bicarbonate (8.4%) inj. 150 MEQ in dextrose 5%-water 1,000 ML IV SCH (03:06)
[2022-03-12 03:12] LABS: ALBUMIN 1.4 G/DL (3.4-5.0); ANION GAP 8 (8-16); BLOOD UREA NITROGEN 92 MG/DL (7-18); BUN/CREATININE RATIO 30.7 (6.6-38.0); CALCIUM 8.3 MG/DL (8.5-10.1); CHLORIDE 107 MMOL/L (99-107); GLUCOSE 199 MG/DL (70-104); MAGNESIUM 1.5 MG/DL (1.5-2.4); PHOSPHORUS 3.2 MG/DL (2.3-4.5); SODIUM 146 MMOL/L (135-145); TOTAL CARBON DIOXIDE 31.1 MMOL/L (24-32); VANCOMYCIN,RANDOM 34.9 UG/ML; eGFR 15 ML/MIN
[2022-03-12 03:22] LABS: POTASSIUM 2.5 MMOL/L (3.5-5.1)
[2022-03-12 03:28] LABS: WHITE BLOOD COUNT 39.9 X10'3 (4.5-11.0)
[2022-03-12 03:32] LABS: ABG BASE EXCESS 5.7 mmol/L (-2.0-2.0); ABG HCO3 28.8 mmol/L (22.0-26.0); ABG OXYGEN SATURATION 92.5 % (94-97); ABG PCO2 (T) 36.6 mmHg (32.0-45.0); ABG PO2 (T) 61.3 mmHg (75.0-100.0); ALLEN'S TEST Modified; FCOHb 0.3 % (0.0-3.9); FMetHb 0.3 % (0.0-1.5); FO2Hb 91.9 % (94-97); PATIENT TEMPERATURE 37.3; PEEP 8 cm H2O; RESPIRATORY RATE 24 b/min; TIDAL VOLUME 350 mL; TOTAL HEMOGLOBIN 9.1 G/dl (12.0-16.0)
--- NOTE | 2022-03-12 03:34 | NUR ---
Call in to Dr. Nicolas to report critical values. Phone goes to [employer]. Will call again in 10 min
--- NOTE | 2022-03-12 03:45 | NUR ---
Call in to Dr. Nicolas to report critical value K+ 2.5. no replacement orders on eMAR. Orders received to implement potassium replacement protocol. HCO3 level on ABG relayed with orders to DC HCO3 drip noted
[2022-03-12] MEDS ORDERED: POTASSIUM BICARB 20meq eff tab 20 MEQ TABLET.EFF PO PRN ×2 (03:50)
[2022-03-12] MEDS ORDERED: potassium CL 10mEq/100ml bag 100 ML IV PRN (04:00)
[2022-03-12] MEDS: potassium Cl 20mEq/100mL bag 100 ML IV PRN ×6 (04:05→22:25)
[2022-03-12 05:51] LABS: ANISOCYTOSIS 1+; PLATELET ESTIMATE NORMAL; TOTAL CELLS COUNTED 100
[2022-03-12] MEDS ORDERED: LEVO100T9 PO (06:32)
--- NOTE | 2022-03-12 06:56 | NUR ---
Received report from PAULA Levin
[2022-03-12] MEDS: K and/or MAG REPLACEMENT MC SCH (07:39)
[2022-03-12] MEDS: famotidine/PF 10 mg/ml inj IV SCH (08:46)
[2022-03-12] MEDS: CEFEPIME IV SCH (08:46)
[2022-03-12] MEDS: NORMAL SALINE IV SCH (08:46)
[2022-03-12] MEDS: heparin, porcine 5000 units/ml vial SQ SCH ×2 (08:47→20:08)
--- NOTE | 2022-03-12 10:44 | NUR ---
Dom Consult: Dom 12 pending [facility] assessment this admit per EMR. Noted pt TF at 40ml/hr this AM during rounds started at 20ml/hr yesterday per EMR; CINDY d/w RN regarding advancing to goal 55ml/hr per order in EMR. Addendum: 03/12/22 at [address] Amended: Links added.
[2022-03-12] MEDS ORDERED: Potassium Cl inj 40 MEQ in dextrose 5%-normal saline 1,000 ML IV SCH (12:20)
--- NOTE | 2022-03-12 13:58 | NUR ---
PRESSURE ULCER EDUCATION: DEFINITION: A pressure ulcer is an area of skin that breaks down when you stay in one position too long. The constant pressure against the skin reduces the blood flow to that area and the affected tissue dies. CAUSES: "Being bedridden or in a wheelchair "Fragile skin "Having a chronic condition, such as diabetes or vascular disease "Inability to move certain parts of your body without assistance "Older age "Incontinence of urine or stool SYMPTOMS: "A reddened area that DOES NOT turn white when pressed on - this can be the beginning of a pressure ulcer "A blister, deep sore or a crater - these can be advanced pressure ulcers FIRST AID: "Relieve the pressure on this area "Keep the area clean and dry "Call your primary doctor if you see any of the above symptoms "DO NOT massage the area "DO NOT use a donut shaped or ring shaped pillow- these actually interfere with the blood flow and cause complications PREVENTION: "Check for pressure ulcers everyday "Change position at least every two hours to relieve pressure "Use items that help relieve pressure- pillows, sheepskin, foam padding, and powders. "Keep skin clean and dry "Eat healthy well balanced meals "Exercise daily IF YOU SEE ANY OF THESE SYMPTOMS WHILE IN THE HOSPITAL - TELL YOUR NURSE IMMEDIATELY. IF YOU SEE ANY OF THESE SYMPTOMS WHILE AT HOME OR HAVE ANY QUESTIONS OR CONCERNS ABOUT PRESSURE ULCERS - CALL YOUR PRIMARY DOCTOR IMMEDIATELY. Addendum: 03/12/22 at 1358 by Kiana Lau LVN Amended: Links added.
[2022-03-12] MEDS: dextrose 5%-lactated ringers 1,000 ML IV SCH (14:46)
--- NOTE | 2022-03-12 18:46 | NUR ---
Report given to PAULA Levin
[2022-03-12] MEDS: insulin glargine (Lantus) pen - multi-dose SQ SCH (20:25)
[2022-03-13] VITALS (34 sets, daily range): BP systolic 82–146; BP diastolic 45–87
[2022-03-13] MEDS: metroNIDAZOLE-Flagyl 500mg/NS 100 ML IV SCH ×3 (00:17→16:55)
[2022-03-13] MEDS: dexmedetomidin/NS 400mcg/100ml 100 ML IV PRN ×2 (01:23→16:57)
[2022-03-13] MEDS: dextrose 5%-lactated ringers 1,000 ML IV SCH ×2 (01:26→09:20)
[2022-03-13] MEDS: hydrocortisone sod succ/PF 100mg/2ml inj. IV SCH ×4 (02:07→19:47)
[2022-03-13] MEDS: insulin regular, human U-100 3ml vial - multi-dose SQ SCH ×3 (02:11→20:09)
[2022-03-13] MEDS: VANCOMYCIN LEVEL IV SCH (02:15)
[2022-03-13 03:31] LABS: BASOPHILS # (AUTO) 0.2 X10'3 (0-0.2); BASOPHILS % (AUTO) 0.5 % (0-1); EOSINOPHILS % (AUTO) 0 % (0-6); HEMATOCRIT 26.8 % (35.0-45.0); HEMOGLOBIN 8.6 g/dl (12.0-16.0); LYMPHOCYTES # (AUTO) 0.7 X10'3 (1.1-4.8); LYMPHOCYTES % (AUTO) 1.8 % (21-51); MEAN CORPUSCULAR HEMOGLOBIN 27.3 PG (27.0-31.0); MEAN CORPUSCULAR VOLUME 85.4 FL (78-98); MEAN PLATELET VOLUME 8.2 FL (7.4-10.4); MONOCYTES # (AUTO) 0.5 X10'3 (0-0.9); MONOCYTES % (AUTO) 1.4 % (2-12); NEUTROPHILS # (AUTO) 37.7 X10'3 (1.8-7.7); NEUTROPHILS % (AUTO) 96.3 % (42-75); PLATELET COUNT 130 X10'3 (140-440); RED BLOOD COUNT 3.13 X10'6 (4.20-5.60); RED CELL DISTRIBUTION WIDTH 16.9 % (11.5-14.5)
[2022-03-13 03:39] LABS: WHITE BLOOD COUNT 39.2 X10'3 (4.5-11.0)
[2022-03-13 03:50] LABS: ALBUMIN 1.2 G/DL (3.4-5.0); ANION GAP 7 (8-16); BLOOD UREA NITROGEN 87 MG/DL (7-18); CALCIUM 8.5 MG/DL (8.5-10.1); CHLORIDE 110 MMOL/L (99-107); CREATININE 2.42 MG/DL (0.40-0.90); GLUCOSE 189 MG/DL (70-104); MAGNESIUM 1.5 MG/DL (1.5-2.4); PHOSPHORUS 2.5 MG/DL (2.3-4.5); POTASSIUM 3.3 MMOL/L (3.5-5.1); SODIUM 148 MMOL/L (135-145); TOTAL CARBON DIOXIDE 30.8 MMOL/L (24-32); VANCOMYCIN,RANDOM 24.2 UG/ML; eGFR 19 ML/MIN
[2022-03-13 03:59] LABS: ABG BASE EXCESS 1.3 mmol/L (-2.0-2.0); ABG HCO3 25.7 mmol/L (22.0-26.0); ABG OXYGEN SATURATION 94.8 % (94-97); ABG PCO2 (T) 39.1 mmHg (32.0-45.0); ABG PO2 (T) 70.9 mmHg (75.0-100.0); ALLEN'S TEST POSITIVE; FCOHb 0.3 % (0.0-3.9); FMetHb 0.1 % (0.0-1.5); FO2Hb 94.4 % (94-97); PATIENT TEMPERATURE 36.7; PEEP 10 cm H2O; RESPIRATORY RATE 18 b/min; TIDAL VOLUME 350 mL; TOTAL HEMOGLOBIN 9.8 G/dl (12.0-16.0)
[2022-03-13 04:11] LABS: TOTAL CELLS COUNTED 100
[2022-03-13 04:12] LABS: ANISOCYTOSIS 1+; HYPOCHROMASIA 2+; PLATELET ESTIMATE NORMAL; TARGET CELLS FEW
[2022-03-13] MEDS: potassium Cl 20mEq/100mL bag 100 ML IV PRN (05:19)
--- NOTE | 2022-03-13 07:06 | NUR ---
Patient in room CICU 2011. I have received report from Poonam Paz and had the opportunity to ask questions and assume patient care.
[2022-03-13] MEDS: K and/or MAG REPLACEMENT MC SCH (08:00)
[2022-03-13] MEDS: heparin, porcine 5000 units/ml vial SQ SCH ×2 (08:00→19:49)
[2022-03-13] MEDS ORDERED: furosemide 40mg/4ml inj IV ONE (08:25)
[2022-03-13] MEDS: CEFEPIME IV SCH (08:55)
[2022-03-13] MEDS: NORMAL SALINE IV SCH (08:55)
[2022-03-13] MEDS: famotidine/PF 10 mg/ml inj IV SCH (08:58)
[2022-03-13] MEDS: NORepinephrine 8mg/ 250ml NS 250 ML IV PRN (09:19)
--- NOTE | 2022-03-13 11:00 | NUR ---
Patients daughter kiana and son in law carlos bedside to see patient. Patients brooke haji requested to take her mothers belongings home, purse wallet, clothes and one shoe sent home with Daughter Kiana in a patient belonging bag
--- NOTE | 2022-03-13 11:42 | NUR ---
Reassessment: Pt seen by wound care, per report pt with a DTI to ischium and coccyx that's intact. Pt remains intubated and tolerating TF with GRV range 55-330 mL. Noted patient's serum Na is elevated at 148 MMOL/L. Pt receiving 85 mL water flushes Q4H as well as D5/LR at 100 mL/hr. TF recommendations will likely need to be adjusted if pt continues with D5 as current rate is providing an additional 408 kcal/day. LBM 03/12 per EMR however per RN at critical care rounds pt having massive BMs. Pt not receiving any bowel care medications. Will continue to follow closely. Recommendations: 1) Continuous TF using Vital AF with 55 mL/hr goal. To provide 1320 mL total volume/day, 1584 kcal, 99 g protein, and 1071 mL water 2) Additional 85 mL water flush Q4H; monitor serum Na and need to adjust 3) Monitor need to adjust TF recs given D5/LR at 100 mL/hr 4) Prealbumin q Saturday/ 5) Daily scaled weights 6) Bowel care per rx Addendum: 03/13/22 at [address] Amended: Links added.
[2022-03-13] MEDS: FENTANYL-0.9 % NACL/PF 100 ML IV SCH ×2 (13:09→23:22)
[2022-03-13 15:10] LABS: C DIFF SPECIMEN=DIARRHEA? ACCEPTABLE; C DIFFICILE TOXINS A&B NEGATIVE (Neg); OCCULT BLOOD STOOL POSITIVE (Neg)
--- NOTE | 2022-03-13 19:05 | NUR ---
Problems reprioritized. Patient report given, questions answered & plan of care reviewed with Poonam MITCHELL.
[2022-03-13] MEDS: insulin glargine (Lantus) pen - multi-dose SQ SCH (20:10)
[2022-03-14] VITALS (33 sets, daily range): BP systolic 87–168; BP diastolic 21–116
[2022-03-14] MEDS: dextrose 5%-lactated ringers 1,000 ML IV SCH (00:06)
[2022-03-14] MEDS: metroNIDAZOLE-Flagyl 500mg/NS 100 ML IV SCH ×3 (00:44→15:58)
[2022-03-14] MEDS: NORepinephrine 8mg/ 250ml NS 250 ML IV PRN (00:49)
[2022-03-14] MEDS: dexmedetomidin/NS 400mcg/100ml 100 ML IV PRN ×2 (00:50→16:02)
[2022-03-14] MEDS: hydrocortisone sod succ/PF 100mg/2ml inj. IV SCH ×4 (02:48→20:56)
[2022-03-14] MEDS: insulin regular, human U-100 3ml vial - multi-dose SQ SCH ×2 (02:50→21:15)
[2022-03-14] MEDS: VANCOMYCIN LEVEL IV SCH (03:00)
[2022-03-14 03:18] LABS: BASOPHILS % (AUTO) 0.2 % (0-1); EOSINOPHILS % (AUTO) 0 % (0-6); HEMATOCRIT 26.9 % (35.0-45.0); HEMOGLOBIN 8.7 g/dl (12.0-16.0); LYMPHOCYTES # (AUTO) 0.5 X10'3 (1.1-4.8); LYMPHOCYTES % (AUTO) 1.8 % (21-51); MEAN CORPUSCULAR HGB CONC 32.3 g/dL (33.0-36.5); MEAN CORPUSCULAR VOLUME 86.8 FL (78-98); MEAN PLATELET VOLUME 9.3 FL (7.4-10.4); MONOCYTES # (AUTO) 0.6 X10'3 (0-0.9); MONOCYTES % (AUTO) 1.8 % (2-12); NEUTROPHILS # (AUTO) 29.5 X10'3 (1.8-7.7); NEUTROPHILS % (AUTO) 96.2 % (42-75); PLATELET COUNT 100 X10'3 (140-440); RED BLOOD COUNT 3.09 X10'6 (4.20-5.60)
[2022-03-14 03:38] LABS: ALBUMIN 1.1 G/DL (3.4-5.0); ANION GAP 8 (8-16); BLOOD UREA NITROGEN 86 MG/DL (7-18); CALCIUM 8.5 MG/DL (8.5-10.1); CHLORIDE 113 MMOL/L (99-107); GLUCOSE 164 MG/DL (70-104); MAGNESIUM 1.4 MG/DL (1.5-2.4); PHOSPHORUS 2.9 MG/DL (2.3-4.5); POTASSIUM 3.1 MMOL/L (3.5-5.1); SODIUM 151 MMOL/L (135-145); TOTAL CARBON DIOXIDE 29.7 MMOL/L (24-32); VANCOMYCIN,RANDOM 20.2 UG/ML; eGFR 22 ML/MIN
[2022-03-14 04:02] LABS: ABG BASE EXCESS -1.6 mmol/L (-2.0-2.0); ABG HCO3 24.5 mmol/L (22.0-26.0); ABG OXYGEN SATURATION 92.5 % (94-97); ABG PCO2 (T) 45.6 mmHg (32.0-45.0); ABG PO2 (T) 61.4 mmHg (75.0-100.0); FCOHb 0.3 % (0.0-3.9); FMetHb 0.2 % (0.0-1.5); PEEP 10 cm H2O; RESPIRATORY RATE 18 b/min; TIDAL VOLUME 350 mL
[2022-03-14] MEDS: potassium Cl 20mEq/100mL bag 100 ML IV PRN ×2 (04:04→05:20)
[2022-03-14 04:20] LABS: TOTAL CELLS COUNTED 100
[2022-03-14 04:21] LABS: ANISOCYTOSIS 1+; HYPOCHROMASIA 2+; PLATELET ESTIMATE DECREASED; TARGET CELLS FEW
[2022-03-14] MEDS: FENTANYL-0.9 % NACL/PF 100 ML IV SCH (04:47)
[2022-03-14] MEDS: fentaNYL 50mcg/ml PF inj. 2,500 MCG in normal saline 250ml IV soln 200 ML IV SCH ×2 (06:08→18:52)
[2022-03-14] MEDS: heparin, porcine 5000 units/ml vial SQ SCH ×2 (08:00→20:00)
[2022-03-14] MEDS: K and/or MAG REPLACEMENT MC SCH (08:00)
[2022-03-14] MEDS: dextrose 50%-water 50ml dispensing syringe IV PRN (08:08)
[2022-03-14] MEDS: CEFEPIME IV SCH (08:11)
[2022-03-14] MEDS: famotidine/PF 10 mg/ml inj IV SCH (08:11)
[2022-03-14] MEDS: NORMAL SALINE IV SCH (08:11)
[2022-03-14 08:23] LABS: WHITE BLOOD COUNT 30.7 X10'3 (4.5-11.0)
[2022-03-14] MEDS ORDERED: magnesium 2GM in 50ml NS 50 ML IV PRN (12:35)
[2022-03-14] MEDS ORDERED: furosemide 10 MG/1 ML 10ml inj IV ONE (12:35)
[2022-03-14] MEDS ORDERED: POTASSIUM BICARB 20meq eff tab 20 MEQ TABLET.EFF PO PRN ×2 (12:35)
[2022-03-14] MEDS ORDERED: magnesium 4gm in 100ml NS 100 ML IV PRN (12:35)
[2022-03-14] MEDS ORDERED: albumin (human) 25% 100 ML IV solution IV ONE (12:35)
[2022-03-14] MEDS: haloperidol lactate 5mg/ml inj IM PRN ×2 (13:12→20:56)
[2022-03-14 13:48] LABS: ALBUMIN 1.2 G/DL (3.4-5.0); ANION GAP 7 (8-16); BLOOD UREA NITROGEN 86 MG/DL (7-18); BUN/CREATININE RATIO 43.4 (6.6-38.0); CALCIUM 8.8 MG/DL (8.5-10.1); CHLORIDE 113 MMOL/L (99-107); CREATININE 1.98 MG/DL (0.40-0.90); GLUCOSE 122 MG/DL (70-104); POTASSIUM 4.3 MMOL/L (3.5-5.1); SODIUM 151 MMOL/L (135-145); TOTAL CARBON DIOXIDE 30.9 MMOL/L (24-32); eGFR 24 ML/MIN
[2022-03-14] MEDS: metoclopramide 5 mg/ml inj IV SCH (15:58)
--- NOTE | 2022-03-14 18:22 | NUR ---
Patient in room CICU 2011. I have received report from Anayeli MITCHELL and had the opportunity to ask questions and assume patient care.
--- NOTE | 2022-03-14 18:37 | NUR ---
Problems reprioritized. Patient report given, questions answered & plan of care reviewed with Maegan Roach.
--- NOTE | 2022-03-14 19:30 | NUR ---
Dr Mack at bedside to insert new central line, patient was repositioned with pillows, she was restless so a bolus of fentanyl was given. patient tolerated well
[2022-03-14] MEDS: insulin glargine (Lantus) pen - multi-dose SQ SCH (21:17)
[2022-03-14 22:32] LABS: ALBUMIN 1.9 G/DL (3.4-5.0); ANION GAP 9 (8-16); BLOOD UREA NITROGEN 95 MG/DL (7-18); BUN/CREATININE RATIO 43.8 (6.6-38.0); CALCIUM 8.9 MG/DL (8.5-10.1); CHLORIDE 112 MMOL/L (99-107); CREATININE 2.17 MG/DL (0.40-0.90); GLUCOSE 185 MG/DL (70-104); POTASSIUM 3.7 MMOL/L (3.5-5.1); SODIUM 151 MMOL/L (135-145); TOTAL CARBON DIOXIDE 30.3 MMOL/L (24-32); eGFR 22 ML/MIN
[2022-03-15] VITALS (32 sets, daily range): BP systolic 96–155; BP diastolic 47–83
[2022-03-15] MEDS: metoclopramide 5 mg/ml inj IV SCH ×4 (00:23→23:33)
[2022-03-15] MEDS: metroNIDAZOLE-Flagyl 500mg/NS 100 ML IV SCH ×4 (00:23→23:33)
[2022-03-15 01:50] LABS: ALBUMIN 1.8 G/DL (3.4-5.0); ANION GAP 9 (8-16); BLOOD UREA NITROGEN 97 MG/DL (7-18); BUN/CREATININE RATIO 46.4 (6.6-38.0); CHLORIDE 113 MMOL/L (99-107); CREATININE 2.09 MG/DL (0.40-0.90); GLUCOSE 122 MG/DL (70-104); MAGNESIUM 1.9 MG/DL (1.5-2.4); PHOSPHORUS 3.6 MG/DL (2.3-4.5); POTASSIUM 3.7 MMOL/L (3.5-5.1); SODIUM 152 MMOL/L (135-145); TOTAL CARBON DIOXIDE 29.8 MMOL/L (24-32); VANCOMYCIN,RANDOM 17.8 UG/ML; eGFR 23 ML/MIN
[2022-03-15 02:03] LABS: BASOPHILS % (AUTO) 0.1 % (0-1); EOSINOPHILS % (AUTO) 0 % (0-6); HEMATOCRIT 28.6 % (35.0-45.0); LYMPHOCYTES # (AUTO) 0.6 X10'3 (1.1-4.8); LYMPHOCYTES % (AUTO) 2.5 % (21-51); MEAN CORPUSCULAR HEMOGLOBIN 27.9 PG (27.0-31.0); MEAN CORPUSCULAR HGB CONC 31.4 g/dL (33.0-36.5); MEAN PLATELET VOLUME 9.7 FL (7.4-10.4); MONOCYTES # (AUTO) 0.8 X10'3 (0-0.9); MONOCYTES % (AUTO) 3.3 % (2-12); NEUTROPHILS # (AUTO) 23.9 X10'3 (1.8-7.7); NEUTROPHILS % (AUTO) 94.1 % (42-75); PLATELET COUNT 96 X10'3 (140-440); RED BLOOD COUNT 3.21 X10'6 (4.20-5.60); RED CELL DISTRIBUTION WIDTH 17.5 % (11.5-14.5)
[2022-03-15 02:09] LABS: WHITE BLOOD COUNT 25.4 X10'3 (4.5-11.0)
[2022-03-15] MEDS: hydrocortisone sod succ/PF 100mg/2ml inj. IV SCH ×4 (02:34→20:51)
[2022-03-15] MEDS: insulin regular, human U-100 3ml vial - multi-dose SQ SCH ×3 (02:37→21:07)
[2022-03-15] MEDS: VANCOMYCIN LEVEL IV SCH (03:00)
[2022-03-15 03:12] LABS: NUCLEATED RED BLOOD CELLS 1 /100WBC (0-0); PLATELET ESTIMATE DECREASED; TOTAL CELLS COUNTED 100
[2022-03-15 03:13] LABS: ANISOCYTOSIS 1+; HYPOCHROMASIA 1+
[2022-03-15 04:14] LABS: ABG BASE EXCESS 0.7 mmol/L (-2.0-2.0); ABG HCO3 27.5 mmol/L (22.0-26.0); ABG OXYGEN SATURATION 95.5 % (94-97); ABG PO2 (T) 74.3 mmHg (75.0-100.0); ALLEN'S TEST POSITIVE; FCOHb 0.3 % (0.0-3.9); FMetHb 0.1 % (0.0-1.5); FO2Hb 95.1 % (94-97); PATIENT TEMPERATURE 36.6; PEEP 8 cm H2O; RESPIRATORY RATE 18 b/min; TIDAL VOLUME 350 mL; TOTAL HEMOGLOBIN 10.1 G/dl (12.0-16.0)
[2022-03-15] MEDS: fentaNYL 50mcg/ml PF inj. 2,500 MCG in normal saline 250ml IV soln 200 ML IV SCH (04:27)
[2022-03-15] MEDS: dexmedetomidin/NS 400mcg/100ml 100 ML IV PRN ×2 (05:02→21:03)
--- NOTE | 2022-03-15 06:27 | NUR ---
Problems reprioritized. Patient report given to Cezar RN, questions answered & plan of care reviewed with .
[2022-03-15 06:51] LABS: ALBUMIN 1.6 G/DL (3.4-5.0); ANION GAP 12 (8-16); BLOOD UREA NITROGEN 98 MG/DL (7-18); BUN/CREATININE RATIO 47.1 (6.6-38.0); CALCIUM 8.8 MG/DL (8.5-10.1); CHLORIDE 112 MMOL/L (99-107); CREATININE 2.08 MG/DL (0.40-0.90); GLUCOSE 88 MG/DL (70-104); POTASSIUM 3.6 MMOL/L (3.5-5.1); SODIUM 153 MMOL/L (135-145); TOTAL CARBON DIOXIDE 29.2 MMOL/L (24-32); eGFR 23 ML/MIN
[2022-03-15] MEDS: K and/or MAG REPLACEMENT MC SCH (08:00)
[2022-03-15] MEDS: heparin, porcine 5000 units/ml vial SQ SCH ×2 (08:00→20:00)
[2022-03-15] MEDS: famotidine/PF 10 mg/ml inj IV SCH (08:43)
[2022-03-15] MEDS: LEVOTHYROXINE SODIUM 100 MCG/5 ML injection IV SCH (08:47)
--- NOTE | 2022-03-15 18:45 | NUR ---
Patient in room CICU 2011. I have received report from Cezar MITCHELL and had the opportunity to ask questions and assume patient care. Dr Mack at bedside, patient condition reviewed, orders received
[2022-03-15] MEDS ORDERED: caffeine citrate injection 80 MG in dextrose 5%-water 50ml 50 ML IV SCH (20:00)
[2022-03-15] MEDS: insulin glargine (Lantus) pen - multi-dose SQ SCH (21:08)
[2022-03-15 22:01] LABS: ALBUMIN 1.7 G/DL (3.4-5.0); ANION GAP 11 (8-16); BLOOD UREA NITROGEN 105 MG/DL (7-18); BUN/CREATININE RATIO 47.3 (6.6-38.0); CHLORIDE 112 MMOL/L (99-107); CREATININE 2.22 MG/DL (0.40-0.90); GLUCOSE 200 MG/DL (70-104); POTASSIUM 3.7 MMOL/L (3.5-5.1); SODIUM 152 MMOL/L (135-145); TOTAL CARBON DIOXIDE 28.7 MMOL/L (24-32); eGFR 21 ML/MIN
[2022-03-16] VITALS (32 sets, daily range): BP systolic 78–156; BP diastolic 36–91
[2022-03-16] MEDS: hydrocortisone sod succ/PF 100mg/2ml inj. IV SCH ×4 (02:23→22:13)
[2022-03-16 02:33] LABS: BASOPHILS % (AUTO) 0.2 % (0-1); EOSINOPHILS % (AUTO) 0 % (0-6); HEMATOCRIT 29.6 % (35.0-45.0); HEMOGLOBIN 9.2 g/dl (12.0-16.0); LYMPHOCYTES # (AUTO) 0.4 X10'3 (1.1-4.8); LYMPHOCYTES % (AUTO) 1.4 % (21-51); MEAN CORPUSCULAR HEMOGLOBIN 27.6 PG (27.0-31.0); MEAN CORPUSCULAR HGB CONC 30.9 g/dL (33.0-36.5); MEAN CORPUSCULAR VOLUME 89.4 FL (78-98); MEAN PLATELET VOLUME 10.2 FL (7.4-10.4); MONOCYTES # (AUTO) 0.9 X10'3 (0-0.9); MONOCYTES % (AUTO) 3.3 % (2-12); NEUTROPHILS # (AUTO) 25.3 X10'3 (1.8-7.7); NEUTROPHILS % (AUTO) 95.1 % (42-75); PLATELET COUNT 120 X10'3 (140-440); RED BLOOD COUNT 3.32 X10'6 (4.20-5.60); RED CELL DISTRIBUTION WIDTH 18.2 % (11.5-14.5)
[2022-03-16 02:42] LABS: ALBUMIN 1.5 G/DL (3.4-5.0); ANION GAP 10 (8-16); BLOOD UREA NITROGEN 106 MG/DL (7-18); BUN/CREATININE RATIO 47.7 (6.6-38.0); CHLORIDE 112 MMOL/L (99-107); CREATININE 2.22 MG/DL (0.40-0.90); GLUCOSE 128 MG/DL (70-104); MAGNESIUM 1.8 MG/DL (1.5-2.4); PHOSPHORUS 4.7 MG/DL (2.3-4.5); POTASSIUM 3.5 MMOL/L (3.5-5.1); SODIUM 152 MMOL/L (135-145); TOTAL CARBON DIOXIDE 30.2 MMOL/L (24-32); VANCOMYCIN,RANDOM 14.5 UG/ML; eGFR 21 ML/MIN
[2022-03-16] MEDS: insulin regular, human U-100 3ml vial - multi-dose SQ SCH ×2 (02:46→22:10)
[2022-03-16 02:58] LABS: PLATELET ESTIMATE DECREASED; TOTAL CELLS COUNTED 100
[2022-03-16 02:59] LABS: ANISOCYTOSIS 2+
[2022-03-16] MEDS: VANCOMYCIN LEVEL IV SCH (03:00)
[2022-03-16 03:12] LABS: WHITE BLOOD COUNT 26.6 X10'3 (4.5-11.0)
[2022-03-16 03:29] LABS: ABG BASE EXCESS 0.3 mmol/L (-2.0-2.0); ABG HCO3 28.6 mmol/L (22.0-26.0); ABG OXYGEN SATURATION 93.9 % (94-97); ABG PCO2 (T) 65.8 mmHg (32.0-45.0); ABG PO2 (T) 68.7 mmHg (75.0-100.0); ALLEN'S TEST POSITIVE; FCOHb 0.3 % (0.0-3.9); FMetHb 0.2 % (0.0-1.5); FO2Hb 93.4 % (94-97); PEEP 8 cm H2O; RESPIRATORY RATE 14 b/min; TIDAL VOLUME 375 mL; TOTAL HEMOGLOBIN 11.1 G/dl (12.0-16.0)
[2022-03-16] MEDS: fentaNYL 50mcg/ml PF inj. 2,500 MCG in normal saline 250ml IV soln 200 ML IV SCH (06:08)
--- NOTE | 2022-03-16 06:33 | NUR ---
[id number] patient began peak pressuring and desaturating despite suctioning and vent troubleshooting. Lung sounds were significantly diminished on the right side so a chest xray was done. Dr Rolon was called and notified of R lung pneumothorax. Dr rolon Placed a chest tube on the right side, 180mls of serosanguineous fluid drained into the atrium. chest tube site was dressed and secured with a small intermittent air leak noted. Patient tolerated procedure well. Problems reprioritized. Patient report given, questions answered & plan of care reviewed with Cezar MITCHELL. Addendum: 03/16/22 at 0649 by Maegan Nunn RN chest tube set at 20 of suction
[2022-03-16] MEDS: metoclopramide 5 mg/ml inj IV SCH ×2 (07:43→16:48)
[2022-03-16] MEDS: metroNIDAZOLE-Flagyl 500mg/NS 100 ML IV SCH ×2 (07:43→16:48)
[2022-03-16] MEDS: famotidine/PF 10 mg/ml inj IV SCH (07:43)
[2022-03-16] MEDS: LEVOTHYROXINE SODIUM 100 MCG/5 ML injection IV SCH (07:43)
[2022-03-16] MEDS: acetaZOLAMIDE IV 500mg inj IV SCH (07:44)
[2022-03-16] MEDS: progesterone, micronized 100mg capsule PO SCH (07:45)
[2022-03-16] MEDS: K and/or MAG REPLACEMENT MC SCH (08:00)
[2022-03-16] MEDS: heparin, porcine 5000 units/ml vial SQ SCH ×2 (08:00→20:00)
[2022-03-16] MEDS ORDERED: dextrose 50%-water 50ml dispensing syringe IV ONE (08:05)
[2022-03-16 11:06] LABS: ABG BASE EXCESS -1.8 mmol/L (-2.0-2.0); ABG HCO3 27.8 mmol/L (22.0-26.0); ABG OXYGEN SATURATION 96.2 % (94-97); ABG PCO2 (T) 76.7 mmHg (32.0-45.0); ABG PO2 (T) 86.3 mmHg (75.0-100.0); ALLEN'S TEST POSITIVE; FCOHb 0.3 % (0.0-3.9); FMetHb 0.4 % (0.0-1.5); FO2Hb 95.5 % (94-97); PEEP 5 cm H2O; RESPIRATORY RATE 12 b/min; TIDAL VOLUME 375 mL; TOTAL HEMOGLOBIN 10.7 G/dl (12.0-16.0)
--- NOTE | 2022-03-16 12:11 | NUR ---
F/u 03/16: Pt remains intubated tolerating TF at goal GRV WNL s/p R CT for tension pneumothorax per bullet casting operator at rounds. Rectal tube now removed though ~400ml visualized in bag yesterday during rounds. D5/LR stopped 03/14 though pt w/ serum Na 152 and episode of Glu 54mg/dl s/p D50 this AM per EMR; may require D5 per MD at rounds. Pt receiving 200ml Q4 free water flushes per MD w/ no dextrose orders in EMR at this time. Noted pt 21.5kg wt gain w/ positive 12L fluid balance this admit per EMR; likely bed scale fluctuations given pt small stature. Will monitor for further nutrition support adjustment needs on vent. Recommendations: 1) Continuous TF using Vital AF with 55 mL/hr goal. To provide 1320 mL total volume/day, 1584 kcal, 99 g protein, and 1071 mL water 2) Additional 200mL water flush Q4H per MD 3) Monitor need to adjust TF recs if D5 initiated 4) Prealbumin q Saturday/; Daily scaled weights 5) Bowel care per rx Addendum: 03/16/22 at [address] Amended: Links added. Addendum: 03/19/22 at [address] CORRECTION* Pt receiving 200ml Q6H free water per MD order in EMR
[2022-03-16] MEDS ORDERED: vancomycin/NS 1 GM ADD-VANTAGE 250 ML IV ONE (14:00)
--- NOTE | 2022-03-16 18:30 | NUR ---
Problems reprioritized. Patient report given, questions answered & plan of care reviewed with PAULA Olivia.
[2022-03-16 19:31] LABS: ABG BASE EXCESS -1.8 mmol/L (-2.0-2.0); ABG HCO3 26.6 mmol/L (22.0-26.0); ABG OXYGEN SATURATION 96.1 % (94-97); ABG PCO2 (T) 65.8 mmHg (32.0-45.0); ABG PO2 (T) 82.7 mmHg (75.0-100.0); ALLEN'S TEST POSITIVE; FCOHb 0.3 % (0.0-3.9); FMetHb 0.3 % (0.0-1.5); FO2Hb 95.5 % (94-97); PATIENT TEMPERATURE 37.1; PEEP 5 cm H2O; RESPIRATORY RATE 14 b/min; TIDAL VOLUME 400 mL; TOTAL HEMOGLOBIN 10.6 G/dl (12.0-16.0)
[2022-03-16] MEDS: dexmedetomidin/NS 400mcg/100ml 100 ML IV PRN (21:09)
[2022-03-16 21:30] LABS: ALANINE AMINOTRANSFERASE 19 U/L (12-78); ALBUMIN 1.3 G/DL (3.4-5.0); ALBUMIN/GLOBULIN RATIO 0.4 (1.1-1.5); ALKALINE PHOSPHATASE 200 IU/L (46-116); ANION GAP -1 (8-16); ASPARTATE AMINO TRANSFERASE 25 U/L (10-37); BILIRUBIN,TOTAL 0.3 MG/DL (0.1-1.0); BLOOD UREA NITROGEN 123 MG/DL (7-18); BUN/CREATININE RATIO 53.9 (6.6-38.0); CALCIUM 8.6 MG/DL (8.5-10.1); CHLORIDE 111 MMOL/L (99-107); CREATININE 2.28 MG/DL (0.40-0.90); GLUCOSE 263 MG/DL (70-104); SODIUM 140 MMOL/L (135-145); TOTAL PROTEIN 4.7 G/DL (6.4-8.2); eGFR 20 ML/MIN
[2022-03-16 21:45] LABS: POTASSIUM 2.8 MMOL/L (3.5-5.1)
[2022-03-16] MEDS: insulin glargine (Lantus) pen - multi-dose SQ SCH (22:11)
[2022-03-16] MEDS: dextrose 5%-water 1,000 ML IV SCH (22:17)
[2022-03-16] MEDS: potassium Cl 20mEq/100mL bag 100 ML IV PRN ×2 (22:18→23:33)
[2022-03-17] VITALS (36 sets, daily range): BP systolic 74–204; BP diastolic 36–105
[2022-03-17 01:36] LABS: BASOPHILS % (AUTO) 0.1 % (0-1); EOSINOPHILS % (AUTO) 0 % (0-6); HEMATOCRIT 30.8 % (35.0-45.0); HEMOGLOBIN 9.3 g/dl (12.0-16.0); LYMPHOCYTES # (AUTO) 0.6 X10'3 (1.1-4.8); LYMPHOCYTES % (AUTO) 1.7 % (21-51); MEAN CORPUSCULAR HEMOGLOBIN 27.4 PG (27.0-31.0); MEAN CORPUSCULAR HGB CONC 30.3 g/dL (33.0-36.5); MEAN CORPUSCULAR VOLUME 90.4 FL (78-98); MEAN PLATELET VOLUME 11.1 FL (7.4-10.4); MONOCYTES % (AUTO) 2.8 % (2-12); NEUTROPHILS # (AUTO) 31.9 X10'3 (1.8-7.7); NEUTROPHILS % (AUTO) 95.4 % (42-75); PLATELET COUNT 149 X10'3 (140-440); RED CELL DISTRIBUTION WIDTH 18.1 % (11.5-14.5)
[2022-03-17 01:41] LABS: WHITE BLOOD COUNT 33.5 X10'3 (4.5-11.0)
[2022-03-17] MEDS: metroNIDAZOLE-Flagyl 500mg/NS 100 ML IV SCH (01:54)
[2022-03-17 01:56] LABS: ALBUMIN 1.4 G/DL (3.4-5.0); ANION GAP 5 (8-16); BLOOD UREA NITROGEN 123 MG/DL (7-18); BUN/CREATININE RATIO 55.2 (6.6-38.0); CALCIUM 8.7 MG/DL (8.5-10.1); CHLORIDE 115 MMOL/L (99-107); CREATININE 2.23 MG/DL (0.40-0.90); GLUCOSE 210 MG/DL (70-104); POTASSIUM 3.6 MMOL/L (3.5-5.1); SODIUM 150 MMOL/L (135-145); eGFR 21 ML/MIN
[2022-03-17] MEDS: fentaNYL 50mcg/ml PF inj. 2,500 MCG in normal saline 250ml IV soln 200 ML IV SCH (01:56)
[2022-03-17] MEDS: insulin regular, human U-100 3ml vial - multi-dose SQ SCH ×2 (02:37→20:54)
[2022-03-17] MEDS: metoclopramide 5 mg/ml inj IV SCH ×4 (02:39→23:54)
[2022-03-17] MEDS: hydrocortisone sod succ/PF 100mg/2ml inj. IV SCH ×3 (02:39→23:54)
[2022-03-17] MEDS: VANCOMYCIN LEVEL IV SCH (03:00)
[2022-03-17 03:12] LABS: ANISOCYTOSIS 2+; MICROCYTOSIS 1+; PLATELET ESTIMATE NORMAL; POLYCHROMASIA FEW; TOTAL CELLS COUNTED 100
[2022-03-17 03:40] LABS: ABG BASE EXCESS -4.4 mmol/L (-2.0-2.0); ABG HCO3 22.7 mmol/L (22.0-26.0); ABG OXYGEN SATURATION 97.2 % (94-97); ABG PCO2 (T) 50.5 mmHg (32.0-45.0); ABG PO2 (T) 95.2 mmHg (75.0-100.0); ALLEN'S TEST POSITIVE; FCOHb 0.3 % (0.0-3.9); FMetHb 0.3 % (0.0-1.5); FO2Hb 96.6 % (94-97); PATIENT TEMPERATURE 36.6; PEEP 5 cm H2O; RESPIRATORY RATE 18 b/min; TIDAL VOLUME 400 mL; TOTAL HEMOGLOBIN 10.3 G/dl (12.0-16.0)
[2022-03-17] MEDS: acetaZOLAMIDE IV 500mg inj IV SCH (08:00)
[2022-03-17] MEDS: heparin, porcine 5000 units/ml vial SQ SCH ×2 (08:00→20:24)
[2022-03-17] MEDS: famotidine/PF 10 mg/ml inj IV SCH (08:00)
[2022-03-17] MEDS: K and/or MAG REPLACEMENT MC SCH (08:00)
[2022-03-17] MEDS: LEVOTHYROXINE SODIUM 100 MCG/5 ML injection IV SCH (08:00)
[2022-03-17] MEDS: progesterone, micronized 100mg capsule PO SCH (08:45)
[2022-03-17] MEDS: linezolid 600mg/300ml PREMIX 300 ML IV SCH ×2 (09:10→20:24)
[2022-03-17] MEDS: vancomycin 125mg/5ml ORAL solution 5ml UD oral syringe PO SCH ×2 (14:00→20:25)
[2022-03-17] MEDS: caffeine citrate injection 60 MG in dextrose 5%-water 50ml 50 ML IV SCH ×2 (14:30→20:24)
[2022-03-17] MEDS: dextrose 5%-water 1,000 ML IV SCH ×2 (16:40→19:21)
[2022-03-17] MEDS: insulin glargine (Lantus) pen - multi-dose SQ SCH (20:55)
[2022-03-18] VITALS (34 sets, daily range): BP systolic 80–150; BP diastolic 40–80
[2022-03-18 00:54] LABS: ABG BASE EXCESS -5.3 mmol/L (-2.0-2.0); ABG HCO3 22.3 mmol/L (22.0-26.0); ABG OXYGEN SATURATION 91.9 % (94-97); ABG PCO2 (T) 52.1 mmHg (32.0-45.0); ABG PO2 (T) 63.4 mmHg (75.0-100.0); ALLEN'S TEST POSITIVE; FCOHb 0.3 % (0.0-3.9); FMetHb 0.2 % (0.0-1.5); FO2Hb 91.4 % (94-97); PATIENT TEMPERATURE 36.5; PEEP 5 cm H2O; RESPIRATORY RATE 18 b/min; TIDAL VOLUME 400 mL; TOTAL HEMOGLOBIN 10.8 G/dl (12.0-16.0)
[2022-03-18] MEDS: vancomycin 125mg/5ml ORAL solution 5ml UD oral syringe PO SCH ×4 (02:10→20:06)
[2022-03-18] MEDS: insulin regular, human U-100 3ml vial - multi-dose SQ SCH ×4 (02:11→20:18)
[2022-03-18] MEDS: VANCOMYCIN LEVEL IV SCH (02:12)
[2022-03-18] MEDS: fentaNYL 50mcg/ml PF inj. 2,500 MCG in normal saline 250ml IV soln 200 ML IV SCH ×2 (02:59→04:29)
[2022-03-18 03:47] LABS: BASOPHILS % (AUTO) 0.1 % (0-1); EOSINOPHILS % (AUTO) 0 % (0-6); HEMATOCRIT 30.1 % (35.0-45.0); HEMOGLOBIN 9.1 g/dl (12.0-16.0); LYMPHOCYTES # (AUTO) 0.4 X10'3 (1.1-4.8); LYMPHOCYTES % (AUTO) 1.1 % (21-51); MEAN CORPUSCULAR HEMOGLOBIN 27.5 PG (27.0-31.0); MEAN CORPUSCULAR HGB CONC 30.3 g/dL (33.0-36.5); MEAN CORPUSCULAR VOLUME 90.9 FL (78-98); MEAN PLATELET VOLUME 11.2 FL (7.4-10.4); MONOCYTES # (AUTO) 0.5 X10'3 (0-0.9); MONOCYTES % (AUTO) 1.3 % (2-12); NEUTROPHILS # (AUTO) 36.5 X10'3 (1.8-7.7); NEUTROPHILS % (AUTO) 97.5 % (42-75); PLATELET COUNT 177 X10'3 (140-440); RED BLOOD COUNT 3.31 X10'6 (4.20-5.60); RED CELL DISTRIBUTION WIDTH 18.6 % (11.5-14.5)
[2022-03-18 03:51] LABS: ALBUMIN 1.3 G/DL (3.4-5.0); ANION GAP 11 (8-16); BLOOD UREA NITROGEN 116 MG/DL (7-18); BUN/CREATININE RATIO 53.2 (6.6-38.0); CALCIUM 8.6 MG/DL (8.5-10.1); CHLORIDE 111 MMOL/L (99-107); CREATININE 2.18 MG/DL (0.40-0.90); GLUCOSE 233 MG/DL (70-104); MAGNESIUM 1.7 MG/DL (1.5-2.4); PHOSPHORUS 5.4 MG/DL (2.3-4.5); POTASSIUM 3.3 MMOL/L (3.5-5.1); SODIUM 148 MMOL/L (135-145); TOTAL CARBON DIOXIDE 26.3 MMOL/L (24-32); VANCOMYCIN,RANDOM 18.1 UG/ML; eGFR 22 ML/MIN
[2022-03-18 03:55] LABS: WHITE BLOOD COUNT 37.4 X10'3 (4.5-11.0)
[2022-03-18] MEDS: dextrose 5%-water 1,000 ML IV SCH ×2 (05:10→07:52)
[2022-03-18 05:27] LABS: ANISOCYTOSIS 2+; PLATELET ESTIMATE NORMAL; TOTAL CELLS COUNTED 100
[2022-03-18 05:28] LABS: LARGE PLATELETS FEW; MICROCYTOSIS 1+; POLYCHROMASIA FEW
--- NOTE | 2022-03-18 07:03 | NUR ---
Patient in room [facility] 2011. I have received report from Denia MITCHELL and had the opportunity to ask questions and assume patient care. Addendum: 03/18/22 at 0708 by Latoya Nuno RN Amended: Links added.
[2022-03-18] MEDS: hydrocortisone sod succ/PF 100mg/2ml inj. IV SCH ×3 (07:52→23:34)
[2022-03-18] MEDS: famotidine/PF 10 mg/ml inj IV SCH (07:52)
[2022-03-18] MEDS: progesterone, micronized 100mg capsule PO SCH (07:53)
[2022-03-18] MEDS: LEVOTHYROXINE SODIUM 100 MCG/5 ML injection IV SCH (07:53)
[2022-03-18] MEDS: metoclopramide 5 mg/ml inj IV SCH ×3 (07:53→23:34)
[2022-03-18] MEDS: acetaZOLAMIDE IV 500mg inj IV SCH (07:53)
[2022-03-18] MEDS: caffeine citrate injection 60 MG in dextrose 5%-water 50ml 50 ML IV SCH ×2 (07:54→19:50)
[2022-03-18] MEDS: heparin, porcine 5000 units/ml vial SQ SCH ×2 (07:54→20:06)
[2022-03-18] MEDS: ipratropium/albuterol 3ml nebule NEB PRN ×2 (07:56→16:13)
[2022-03-18] MEDS: linezolid 600mg/300ml PREMIX 300 ML IV SCH ×2 (08:45→20:06)
--- NOTE | 2022-03-18 09:09 | NUR ---
Brandi cortez; Addendum: 03/18/22 at 0910 by Latoya Nuno RN BRANDI called Dr. Frederick moy urinary retention and distention. Order received to place Elizabeth catheter.
--- NOTE | 2022-03-18 09:47 | NUR ---
16 f temp. Elizabeth catheter placed per order as pt. is having urinary retention.
--- NOTE | 2022-03-18 10:35 | NUR ---
Lots of ectopy noted. Dr. Mack at bedside and aware.
--- NOTE | 2022-03-18 11:14 | NUR ---
Left chest [place] CT dc'd and regular CT placed per Dr. Mack.
[2022-03-18] MEDS ORDERED: mineral oil/petrolatum ophthal oint EACHEYE PRN (13:05)
--- NOTE | 2022-03-18 14:36 | NUR ---
Wound pics obtained per policy. New foam dressings applied.
--- NOTE | 2022-03-18 18:12 | NUR ---
Problems reprioritized. Patient report given, questions answered & plan of care reviewed with Denia MITCHELL.
[2022-03-18] MEDS: insulin glargine (Lantus) pen - multi-dose SQ SCH (20:19)
[2022-03-19] VITALS (35 sets, daily range): BP systolic 87–145; BP diastolic 33–99
[2022-03-19] MEDS: fentaNYL 50mcg/ml PF inj. 2,500 MCG in normal saline 250ml IV soln 200 ML IV SCH (00:08)
[2022-03-19] MEDS: vancomycin 125mg/5ml ORAL solution 5ml UD oral syringe PO SCH ×4 (02:00→20:22)
[2022-03-19] MEDS: insulin regular, human U-100 3ml vial - multi-dose SQ SCH ×4 (02:10→20:41)
[2022-03-19 02:21] LABS: BASOPHILS # (AUTO) 0.1 X10'3 (0-0.2); BASOPHILS % (AUTO) 0.2 % (0-1); EOSINOPHILS % (AUTO) 0 % (0-6); HEMATOCRIT 25.7 % (35.0-45.0); HEMOGLOBIN 7.9 g/dl (12.0-16.0); LYMPHOCYTES # (AUTO) 0.5 X10'3 (1.1-4.8); LYMPHOCYTES % (AUTO) 1.5 % (21-51); MEAN CORPUSCULAR HEMOGLOBIN 27.1 PG (27.0-31.0); MEAN CORPUSCULAR HGB CONC 30.7 g/dL (33.0-36.5); MEAN CORPUSCULAR VOLUME 88.4 FL (78-98); MEAN PLATELET VOLUME 10.9 FL (7.4-10.4); MONOCYTES # (AUTO) 0.7 X10'3 (0-0.9); MONOCYTES % (AUTO) 2.3 % (2-12); PLATELET COUNT 194 X10'3 (140-440); RED CELL DISTRIBUTION WIDTH 17.9 % (11.5-14.5)
[2022-03-19 02:24] LABS: WHITE BLOOD COUNT 30.1 X10'3 (4.5-11.0)
[2022-03-19 02:33] LABS: ALBUMIN 1.2 G/DL (3.4-5.0); ANION GAP 12 (8-16); BLOOD UREA NITROGEN 119 MG/DL (7-18); BUN/CREATININE RATIO 58.6 (6.6-38.0); CHLORIDE 106 MMOL/L (99-107); CREATININE 2.03 MG/DL (0.40-0.90); GLUCOSE 215 MG/DL (70-104); MAGNESIUM 1.5 MG/DL (1.5-2.4); PHOSPHORUS 5.2 MG/DL (2.3-4.5); SODIUM 142 MMOL/L (135-145); TOTAL CARBON DIOXIDE 23.7 MMOL/L (24-32); eGFR 23 ML/MIN
[2022-03-19 03:14] LABS: ABG BASE EXCESS -6.3 mmol/L (-2.0-2.0); ABG OXYGEN SATURATION 93.1 % (94-97); ABG PCO2 (T) 48.8 mmHg (32.0-45.0); ABG PO2 (T) 63.7 mmHg (75.0-100.0); ALLEN'S TEST POSITIVE; FCOHb 0.3 % (0.0-3.9); FMetHb 0.3 % (0.0-1.5); FO2Hb 92.5 % (94-97); PATIENT TEMPERATURE 36.5; PEEP 5 cm H2O; RESPIRATORY RATE 18 b/min; TIDAL VOLUME 450 mL; TOTAL HEMOGLOBIN 10.4 G/dl (12.0-16.0)
[2022-03-19 03:28] LABS: POTASSIUM 2.9 MMOL/L (3.5-5.1)
[2022-03-19] MEDS: potassium Cl 20mEq/100mL bag 100 ML IV PRN ×4 (03:31→07:41)
[2022-03-19 03:45] LABS: PLATELET ESTIMATE NORMAL; TOTAL CELLS COUNTED 100
[2022-03-19 03:46] LABS: ANISOCYTOSIS 1+
[2022-03-19 03:47] LABS: LARGE PLATELETS FEW; POLYCHROMASIA FEW
[2022-03-19] MEDS: dextrose 5%-water 1,000 ML IV SCH ×2 (06:10→18:40)
--- NOTE | 2022-03-19 06:31 | NUR ---
Problems reprioritized. Patient report given, questions answered & plan of care reviewed with PAULA Klein
[2022-03-19] MEDS: heparin, porcine 5000 units/ml vial SQ SCH ×2 (07:36→20:23)
[2022-03-19] MEDS: hydrocortisone sod succ/PF 100mg/2ml inj. IV SCH ×2 (07:36→20:22)
[2022-03-19] MEDS: LEVOTHYROXINE SODIUM 100 MCG/5 ML injection IV SCH (07:37)
[2022-03-19] MEDS: famotidine/PF 10 mg/ml inj IV SCH (07:37)
[2022-03-19] MEDS: progesterone, micronized 100mg capsule PO SCH (07:37)
[2022-03-19] MEDS: metoclopramide 5 mg/ml inj IV SCH ×2 (07:48→15:54)
[2022-03-19] MEDS: ipratropium/albuterol 3ml nebule NEB PRN ×2 (07:50→23:08)
[2022-03-19] MEDS: caffeine citrate injection 60 MG in dextrose 5%-water 50ml 50 ML IV SCH (09:02)
[2022-03-19] MEDS: linezolid 600mg/300ml PREMIX 300 ML IV SCH ×2 (09:31→20:22)
[2022-03-19] MEDS: NORepinephrine 8mg/ 250ml NS 250 ML IV PRN (11:56)
--- NOTE | 2022-03-19 12:21 | NUR ---
F/u 03/19: Pt remains intubated w/ TF held last night for GRV 525ml now restarted at goal this AM per EMR. Pt having large diarrhea s/p rectal tube placement per RN today; previously receiving reglan though held for diarrhea per EMR. Pt started on oral vancomycin though probiotic not to start per ID MD. Serum Na 142 down from 148mmol/L prior actually receiving 200ml Q6H per MD order in EMR. Will monitor for further nutrition intervention needs. Recommendations: 1) Continuous TF using Vital AF with 55 mL/hr goal. To provide 1320 mL total volume/day, 1584 kcal, 99 g protein, and 1071 mL water 2) Additional 200mL water flush Q6H per MD 3) Prealbumin q Saturday/; Daily scaled weights 4) Bowel care per rx Addendum: 03/19/22 at [address] Amended: Links added.
--- NOTE | 2022-03-19 14:25 | NUR ---
WOC RN in to assess pt. wounds.
--- NOTE | 2022-03-19 18:05 | NUR ---
RN showed Dr. Mack's pt's swollen and discolored LUE. No new orders received. Report given to NOC PAULA Loza.
[2022-03-19] MEDS: insulin glargine (Lantus) pen - multi-dose SQ SCH (20:42)
[2022-03-20] VITALS (31 sets, daily range): BP systolic 87–153; BP diastolic 42–109
[2022-03-20] MEDS: metoclopramide 5 mg/ml inj IV SCH ×3 (00:09→15:47)
[2022-03-20] MEDS: vancomycin 125mg/5ml ORAL solution 5ml UD oral syringe PO SCH ×4 (02:13→20:00)
[2022-03-20] MEDS: insulin regular, human U-100 3ml vial - multi-dose SQ SCH ×4 (02:15→20:52)
[2022-03-20 02:28] LABS: BASOPHILS % (AUTO) 0 % (0-1); EOSINOPHILS % (AUTO) 0 % (0-6); HEMATOCRIT 27.5 % (35.0-45.0); HEMOGLOBIN 8.5 g/dl (12.0-16.0); LYMPHOCYTES # (AUTO) 0.5 X10'3 (1.1-4.8); LYMPHOCYTES % (AUTO) 1.3 % (21-51); MEAN CORPUSCULAR HEMOGLOBIN 27.3 PG (27.0-31.0); MEAN CORPUSCULAR HGB CONC 30.9 g/dL (33.0-36.5); MEAN CORPUSCULAR VOLUME 88.1 FL (78-98); MEAN PLATELET VOLUME 10.8 FL (7.4-10.4); MONOCYTES # (AUTO) 0.9 X10'3 (0-0.9); MONOCYTES % (AUTO) 2.4 % (2-12); NEUTROPHILS # (AUTO) 34.9 X10'3 (1.8-7.7); NEUTROPHILS % (AUTO) 96.3 % (42-75); PLATELET COUNT 243 X10'3 (140-440); RED BLOOD COUNT 3.12 X10'6 (4.20-5.60); RED CELL DISTRIBUTION WIDTH 17.9 % (11.5-14.5)
[2022-03-20 02:32] LABS: WHITE BLOOD COUNT 36.3 X10'3 (4.5-11.0)
[2022-03-20 02:40] LABS: ALBUMIN 1.3 G/DL (3.4-5.0); ANION GAP 12 (8-16); BLOOD UREA NITROGEN 118 MG/DL (7-18); BUN/CREATININE RATIO 59.3 (6.6-38.0); CALCIUM 8.2 MG/DL (8.5-10.1); CHLORIDE 101 MMOL/L (99-107); CREATININE 1.99 MG/DL (0.40-0.90); GLUCOSE 180 MG/DL (70-104); MAGNESIUM 1.5 MG/DL (1.5-2.4); PHOSPHORUS 5.2 MG/DL (2.3-4.5); POTASSIUM 4.2 MMOL/L (3.5-5.1); SODIUM 135 MMOL/L (135-145); TOTAL CARBON DIOXIDE 22.5 MMOL/L (24-32); eGFR 24 ML/MIN
[2022-03-20 02:59] LABS: ANISOCYTOSIS 1+; LARGE PLATELETS FEW; PLATELET ESTIMATE NORMAL; TOTAL CELLS COUNTED 100
[2022-03-20 03:13] LABS: ABG BASE EXCESS -7.4 mmol/L (-2.0-2.0); ABG OXYGEN SATURATION 97.4 % (94-97); ABG PCO2 (T) 41.2 mmHg (32.0-45.0); ABG PO2 (T) 95.6 mmHg (75.0-100.0); ALLEN'S TEST POSITIVE; FCOHb 0.3 % (0.0-3.9); FMetHb 0.4 % (0.0-1.5); FO2Hb 96.7 % (94-97); PATIENT TEMPERATURE 36.5; PEEP 5 cm H2O; RESPIRATORY RATE 20 b/min; TIDAL VOLUME 450 mL; TOTAL HEMOGLOBIN 9.6 G/dl (12.0-16.0)
[2022-03-20] MEDS: fentaNYL 50mcg/ml PF inj. 2,500 MCG in normal saline 250ml IV soln 200 ML IV SCH ×2 (06:08→15:42)
--- NOTE | 2022-03-20 06:17 | NUR ---
Problems reprioritized. Patient report given, questions answered & plan of care reviewed with PAULA Klein .
[2022-03-20] MEDS: dextrose 5%-water 1,000 ML IV SCH (07:10)
[2022-03-20] MEDS: hydrocortisone sod succ/PF 100mg/2ml inj. IV SCH ×2 (08:01→20:35)
[2022-03-20] MEDS: LEVOTHYROXINE SODIUM 100 MCG/5 ML injection IV SCH (08:02)
[2022-03-20] MEDS: famotidine/PF 10 mg/ml inj IV SCH (08:02)
[2022-03-20] MEDS: linezolid 600mg/300ml PREMIX 300 ML IV SCH ×2 (08:03→20:34)
[2022-03-20] MEDS: heparin, porcine 5000 units/ml vial SQ SCH ×2 (08:03→20:35)
[2022-03-20 11:15] LABS: PREALBUMIN 23.5 MG/DL (19-36)
--- NOTE | 2022-03-20 11:58 | NUR ---
F/u 03/20: Pt remains very edematous w/ LUE +4 and general 3+ edemas per EMR/RN at rounds. Pt pending RN Malnutrition Screen this admit however, per RN and aid this AM pt clavicles continue to protrude despite edema w/ pt having clearly visible rib cage on admit. Pt does have moderate temporal wasting though unknown if baseline age-associated appearance. Given severe edema and moderate visible muscle/fat wasting pt meets severe malnutrition criteria at this time; notified. Addendum: 03/20/22 at [address] Amended: Links added.
[2022-03-20] MEDS ORDERED: calcium acetate 667mg (PhosLO) capsule PO SCH (13:15)
[2022-03-20] MEDS: sodium bicarbonate (8.4%) inj. 150 MEQ in dextrose 5%-water 1,000 ML IV SCH (13:48)
--- NOTE | 2022-03-20 18:12 | NUR ---
Problems reprioritized. Patient report given, questions answered & plan of care reviewed with NOC RN.
--- NOTE | 2022-03-20 18:30 | NUR ---
Patient in room C[facility] 2011. I have received report from Lola MITCHELL and had the opportunity to ask questions and assume patient care.
[2022-03-20] MEDS: calcium acetate 667mg (PhosLO) capsule PO SCH (20:34)
[2022-03-20] MEDS: insulin glargine (Lantus) pen - multi-dose SQ SCH (20:55)
[2022-03-20] MEDS ORDERED: diatr meglu/diatrizoate 30ml oral sol.-(3 dose) bottle PO SCH (21:00)
--- NOTE | 2022-03-20 22:00 | NUR ---
Redressed right chest tube. Site has leak from the entry point and saturates dressing.
[2022-03-20] MEDS: ipratropium/albuterol 3ml nebule NEB PRN (22:55)
[2022-03-20] MEDS: NORepinephrine 8mg/ 250ml NS 250 ML IV PRN (22:56)
--- NOTE | 2022-03-20 22:57 | NUR ---
Patient in room [facility] 2011. I have received report from Latoya MITCHELL and had the opportunity to ask questions and assume patient care. Addendum: 03/20/22 at 2259 by Elier Razo RN Time correction to 1830.
[2022-03-21] VITALS (32 sets, daily range): BP systolic 90–134; BP diastolic 46–78
[2022-03-21] MEDS: metoclopramide 5 mg/ml inj IV SCH ×3 (00:13→15:55)
[2022-03-21] MEDS: vancomycin 125mg/5ml ORAL solution 5ml UD oral syringe PO SCH ×2 (02:00→07:46)
[2022-03-21 03:00] LABS: ABG BASE EXCESS -4.3 mmol/L (-2.0-2.0); ABG HCO3 20.3 mmol/L (22.0-26.0); ABG OXYGEN SATURATION 97.1 % (94-97); ABG PCO2 (T) 34.7 mmHg (32.0-45.0); ALLEN'S TEST POSITIVE; FCOHb 0.3 % (0.0-3.9); FMetHb 0.2 % (0.0-1.5); FO2Hb 96.6 % (94-97); PATIENT TEMPERATURE 36.8; PEEP 5 cm H2O; RESPIRATORY RATE 20 b/min; TIDAL VOLUME 450 mL; TOTAL HEMOGLOBIN 9.3 G/dl (12.0-16.0)
[2022-03-21 03:28] LABS: BASOPHILS % (AUTO) 0.1 % (0-1); EOSINOPHILS % (AUTO) 0 % (0-6); HEMATOCRIT 25.6 % (35.0-45.0); LYMPHOCYTES # (AUTO) 0.4 X10'3 (1.1-4.8); LYMPHOCYTES % (AUTO) 1.2 % (21-51); MEAN CORPUSCULAR HEMOGLOBIN 27.3 PG (27.0-31.0); MEAN CORPUSCULAR HGB CONC 31.3 g/dL (33.0-36.5); MEAN CORPUSCULAR VOLUME 87.1 FL (78-98); MEAN PLATELET VOLUME 10.5 FL (7.4-10.4); MONOCYTES # (AUTO) 0.7 X10'3 (0-0.9); MONOCYTES % (AUTO) 1.9 % (2-12); NEUTROPHILS # (AUTO) 33.6 X10'3 (1.8-7.7); NEUTROPHILS % (AUTO) 96.8 % (42-75); PLATELET COUNT 243 X10'3 (140-440); RED BLOOD COUNT 2.94 X10'6 (4.20-5.60); RED CELL DISTRIBUTION WIDTH 17.2 % (11.5-14.5)
[2022-03-21 03:41] LABS: WHITE BLOOD COUNT 34.7 X10'3 (4.5-11.0)
[2022-03-21 03:54] LABS: ALANINE AMINOTRANSFERASE 23 U/L (12-78); ALBUMIN 1.2 G/DL (3.4-5.0); ALBUMIN/GLOBULIN RATIO 0.3 (1.1-1.5); ALKALINE PHOSPHATASE 166 IU/L (46-116); ANION GAP 12 (8-16); ASPARTATE AMINO TRANSFERASE 35 U/L (10-37); BILIRUBIN,TOTAL 0.3 MG/DL (0.1-1.0); BLOOD UREA NITROGEN 118 MG/DL (7-18); BUN/CREATININE RATIO 60.2 (6.6-38.0); CHLORIDE 100 MMOL/L (99-107); CREATININE 1.96 MG/DL (0.40-0.90); GLUCOSE 144 MG/DL (70-104); MAGNESIUM 1.7 MG/DL (1.5-2.4); PHOSPHORUS 5.8 MG/DL (2.3-4.5); SODIUM 136 MMOL/L (135-145); TOTAL CARBON DIOXIDE 23.9 MMOL/L (24-32); TOTAL PROTEIN 4.7 G/DL (6.4-8.2); eGFR 24 ML/MIN
--- NOTE | 2022-03-21 06:30 | NUR ---
Patient in room CICU 2011. I have received report from PAULA Bustamante and had the opportunity to ask questions and assume patient care.
[2022-03-21] MEDS: heparin, porcine 5000 units/ml vial SQ SCH ×2 (07:45→20:38)
[2022-03-21] MEDS: hydrocortisone sod succ/PF 100mg/2ml inj. IV SCH ×2 (07:45→20:38)
[2022-03-21] MEDS: LEVOTHYROXINE SODIUM 100 MCG/5 ML injection IV SCH (07:45)
[2022-03-21] MEDS: famotidine/PF 10 mg/ml inj IV SCH (07:45)
[2022-03-21] MEDS: calcium acetate 667mg (PhosLO) capsule PO SCH (07:46)
[2022-03-21] MEDS: linezolid 600mg/300ml PREMIX 300 ML IV SCH ×2 (07:46→20:41)
[2022-03-21] MEDS: sodium bicarbonate (8.4%) inj. 150 MEQ in dextrose 5%-water 1,000 ML IV SCH ×2 (07:47→15:53)
[2022-03-21] MEDS: insulin regular, human U-100 3ml vial - multi-dose SQ SCH (08:21)
--- NOTE | 2022-03-21 08:30 | NUR ---
Dr Dwayne rucker
[2022-03-21] MEDS ORDERED: acetaminophen 325mg tablet OGT PRN ×2 (08:42→08:43)
[2022-03-21] MEDS ORDERED: vancomycin 125mg/5ml ORAL solution 5ml UD oral syringe OGT SCH (08:43)
[2022-03-21] MEDS ORDERED: diatr meglu/diatrizoate 30ml oral sol.-(3 dose) bottle OGT SCH (08:43)
[2022-03-21] MEDS ORDERED: POTASSIUM BICARB 20meq eff tab 20 MEQ TABLET.EFF OGT PRN ×2 (08:44)
--- NOTE | 2022-03-21 10:45 | NUR ---
Dr Joshua rounded
--- NOTE | 2022-03-21 11:30 | NUR ---
Out to CT
[2022-03-21] MEDS: calcium acetate 667mg (PhosLO) capsule OGT SCH ×2 (14:19→20:38)
[2022-03-21] MEDS: vancomycin 125mg/5ml ORAL solution 5ml UD oral syringe OGT SCH ×2 (14:19→20:38)
--- NOTE | 2022-03-21 18:35 | NUR ---
Problems reprioritized. Patient report given, questions answered & plan of care reviewed with PAULA Bustamante.
[2022-03-21] MEDS: insulin glargine (Lantus) pen - multi-dose SQ SCH (21:00)
[2022-03-22] VITALS (33 sets, daily range): BP systolic 83–136; BP diastolic 41–74
[2022-03-22] MEDS: metoclopramide 5 mg/ml inj IV SCH ×3 (00:55→16:57)
[2022-03-22] MEDS: vancomycin 125mg/5ml ORAL solution 5ml UD oral syringe OGT SCH ×4 (02:54→20:33)
[2022-03-22 03:02] LABS: BASOPHILS % (AUTO) 0.1 % (0-1); EOSINOPHILS % (AUTO) 0.1 % (0-6); HEMATOCRIT 25.6 % (35.0-45.0); HEMOGLOBIN 8.2 g/dl (12.0-16.0); LYMPHOCYTES # (AUTO) 0.9 X10'3 (1.1-4.8); LYMPHOCYTES % (AUTO) 3.4 % (21-51); MEAN CORPUSCULAR HEMOGLOBIN 27.3 PG (27.0-31.0); MEAN CORPUSCULAR VOLUME 85.4 FL (78-98); MEAN PLATELET VOLUME 10.3 FL (7.4-10.4); MONOCYTES # (AUTO) 0.5 X10'3 (0-0.9); MONOCYTES % (AUTO) 1.8 % (2-12); NEUTROPHILS % (AUTO) 94.6 % (42-75); PLATELET COUNT 200 X10'3 (140-440); RED CELL DISTRIBUTION WIDTH 16.7 % (11.5-14.5)
[2022-03-22 03:10] LABS: ALBUMIN 1.1 G/DL (3.4-5.0); ANION GAP 12 (8-16); BLOOD UREA NITROGEN 121 MG/DL (7-18); BUN/CREATININE RATIO 63.7 (6.6-38.0); CALCIUM 7.8 MG/DL (8.5-10.1); CHLORIDE 99 MMOL/L (99-107); GLUCOSE 181 MG/DL (70-104); MAGNESIUM 1.6 MG/DL (1.5-2.4); POTASSIUM 3.3 MMOL/L (3.5-5.1); SODIUM 136 MMOL/L (135-145); TOTAL CARBON DIOXIDE 25.4 MMOL/L (24-32); eGFR 25 ML/MIN
[2022-03-22 03:11] LABS: WHITE BLOOD COUNT 27.5 X10'3 (4.5-11.0)
[2022-03-22 03:32] LABS: ABG BASE EXCESS -0.5 mmol/L (-2.0-2.0); ABG HCO3 21.6 mmol/L (22.0-26.0); ABG OXYGEN SATURATION 94.5 % (94-97); ABG PCO2 (T) 26.4 mmHg (32.0-45.0); ABG PO2 (T) 65.2 mmHg (75.0-100.0); ALLEN'S TEST POSITIVE; FCOHb 0.3 % (0.0-3.9); FMetHb 0.1 % (0.0-1.5); FO2Hb 94.1 % (94-97); PATIENT TEMPERATURE 36.6; PEEP 5 cm H2O; RESPIRATORY RATE 20 b/min; TIDAL VOLUME 450 mL; TOTAL HEMOGLOBIN 9.5 G/dl (12.0-16.0)
[2022-03-22] MEDS: potassium Cl 20mEq/100mL bag 100 ML IV PRN (03:42)
[2022-03-22 05:45] LABS: ANISOCYTOSIS 1+; PLATELET ESTIMATE NORMAL; TOTAL CELLS COUNTED 100
--- NOTE | 2022-03-22 06:05 | NUR ---
Problems reprioritized. Patient report given, questions answered & plan of care reviewed with Anayeli MITCHELL.
[2022-03-22] MEDS: heparin, porcine 5000 units/ml vial SQ SCH ×2 (07:41→20:34)
[2022-03-22] MEDS: famotidine/PF 10 mg/ml inj IV SCH (07:46)
[2022-03-22] MEDS: hydrocortisone sod succ/PF 100mg/2ml inj. IV SCH (07:46)
[2022-03-22] MEDS: calcium acetate 667mg (PhosLO) capsule OGT SCH ×3 (07:47→20:33)
[2022-03-22] MEDS: linezolid 600mg/300ml PREMIX 300 ML IV SCH ×2 (07:47→20:33)
[2022-03-22] MEDS: insulin regular, human U-100 3ml vial - multi-dose SQ SCH ×3 (08:22→20:47)
[2022-03-22] MEDS: LEVOTHYROXINE SODIUM 100 MCG/5 ML injection IV SCH (08:25)
[2022-03-22] MEDS: sodium bicarbonate (8.4%) inj. 150 MEQ in dextrose 5%-water 1,000 ML IV SCH (09:24)
[2022-03-22] MEDS ORDERED: fentaNYL/PF 50MCG/1 ML 2ML syringe IV PRN (10:30)
[2022-03-22] MEDS: FENTANYL-0.9 % NACL/PF 100 ML IV PRN (11:04)
--- NOTE | 2022-03-22 11:50 | NUR ---
F/u 03/22: Pt remains intubated tolerating TF at goal GRV WNL. Rectal tube visualized ~500ml in bag during rounds this AM. Pt receiving Na-bicarb/D5W at 50ml/hr per EMR though to stop today per experimental mechanic. Pt has necrotizing PNA both lungs pending family meeting possibly today regarding goals of care per critical care team. 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 Will monitor for further nutrition intervention needs and change in code status. Recommendations: 1) Continuous TF using Vital AF with 55 mL/hr goal. To provide 1320 mL total volume/day, 1584 kcal, 99 g protein, and 1071 mL water 2) Additional 200mL water flush Q6H per MD 3) consider Sin supplementation w/ free water flushes given R ischium unstageable site per WOC note 4) Prealbumin q Saturday/; Daily scaled weights 5) Bowel care per rx; routine reglan per experimental mechanic 6) monitor for change in code status Addendum: 03/22/22 at [address] Amended: Links added.
--- NOTE | 2022-03-22 19:00 | NUR ---
Received report from PAULA Guadalupe; questions answered; pt w/low dose fentanyl gtt for comfort; pt awakens easily; opens eyes to name, moves extremities but very weak; VSS, sats good on 50%; remains very edematous-upper extremities weepy, perineal area weepy; adeq UO.
[2022-03-22] MEDS: dextrose 50%-water 50ml dispensing syringe IV PRN (19:39)
[2022-03-22] MEDS: insulin glargine (Lantus) pen - multi-dose SQ SCH (20:46)
--- NOTE | 2022-03-22 23:00 | NUR ---
No change in status; pt resting when not disturbed; repositioned Q2h; very fragile skin, both forearms weeping, bruised/reddened areas but skin intact; open areas to coccyx and R hip w/hydrophillic drsg; groin area/innner thighs excoriated; pericare done and calazime cream applied;
[2022-03-23] VITALS (32 sets, daily range): BP systolic 82–121; BP diastolic 36–71
[2022-03-23] MEDS: metoclopramide 5 mg/ml inj IV SCH ×4 (00:52→23:02)
[2022-03-23] MEDS: vancomycin 125mg/5ml ORAL solution 5ml UD oral syringe OGT SCH ×4 (02:22→20:39)
[2022-03-23 02:47] LABS: ALBUMIN 0.9 G/DL (3.4-5.0); ANION GAP 10 (8-16); BLOOD UREA NITROGEN 107 MG/DL (7-18); BUN/CREATININE RATIO 61.1 (6.6-38.0); CALCIUM 7.8 MG/DL (8.5-10.1); CHLORIDE 100 MMOL/L (99-107); CREATININE 1.75 MG/DL (0.40-0.90); GLUCOSE 77 MG/DL (70-104); MAGNESIUM 1.6 MG/DL (1.5-2.4); POTASSIUM 3.8 MMOL/L (3.5-5.1); SODIUM 137 MMOL/L (135-145); TOTAL CARBON DIOXIDE 27.2 MMOL/L (24-32); eGFR 28 ML/MIN
[2022-03-23 02:56] LABS: BASOPHILS % (AUTO) 0 % (0-1); EOSINOPHILS % (AUTO) 0.1 % (0-6); HEMATOCRIT 22.1 % (35.0-45.0); HEMOGLOBIN 7.2 g/dl (12.0-16.0); LYMPHOCYTES # (AUTO) 0.3 X10'3 (1.1-4.8); LYMPHOCYTES % (AUTO) 1.5 % (21-51); MEAN CORPUSCULAR HEMOGLOBIN 27.5 PG (27.0-31.0); MEAN CORPUSCULAR HGB CONC 32.4 g/dL (33.0-36.5); MEAN CORPUSCULAR VOLUME 84.8 FL (78-98); MEAN PLATELET VOLUME 10.2 FL (7.4-10.4); MONOCYTES # (AUTO) 0.2 X10'3 (0-0.9); NEUTROPHILS # (AUTO) 21.7 X10'3 (1.8-7.7); NEUTROPHILS % (AUTO) 97.4 % (42-75); PLATELET COUNT 141 X10'3 (140-440); RED CELL DISTRIBUTION WIDTH 16.4 % (11.5-14.5); WHITE BLOOD COUNT 22.3 X10'3 (4.5-11.0)
--- NOTE | 2022-03-23 03:00 | NUR ---
No changes; drsgs changed to both CTs; R chest tube continues to have airleak; minimal drainage from either one.
[2022-03-23] MEDS: FENTANYL-0.9 % NACL/PF 100 ML IV PRN ×2 (03:56→23:03)
[2022-03-23] MEDS: dextrose 50%-water 50ml dispensing syringe IV PRN (03:58)
[2022-03-23 04:15] LABS: ABG BASE EXCESS -2.5 mmol/L (-2.0-2.0); ABG HCO3 19.7 mmol/L (22.0-26.0); ABG OXYGEN SATURATION 95.7 % (94-97); ABG PCO2 (T) 25.2 mmHg (32.0-45.0); ABG PO2 (T) 84.5 mmHg (75.0-100.0); ALLEN'S TEST POSITIVE; FCOHb 0.2 % (0.0-3.9); FMetHb 0.4 % (0.0-1.5); FO2Hb 95.1 % (94-97); PATIENT TEMPERATURE 37.4
--- NOTE | 2022-03-23 06:16 | NUR ---
Report given to PAULA Melgar; no changes in status.
[2022-03-23] MEDS: famotidine/PF 10 mg/ml inj IV SCH (08:13)
[2022-03-23] MEDS: heparin, porcine 5000 units/ml vial SQ SCH ×2 (08:14→20:40)
[2022-03-23] MEDS: calcium acetate 667mg (PhosLO) capsule OGT SCH ×3 (08:14→20:39)
[2022-03-23] MEDS: LEVOTHYROXINE SODIUM 100 MCG/5 ML injection IV SCH (08:14)
[2022-03-23] MEDS: linezolid 600mg/300ml PREMIX 300 ML IV SCH ×2 (08:17→20:40)
--- NOTE | 2022-03-23 11:46 | NUR ---
F/u 03/23: Pt remains intubated tolerating TF at goal. H[employer] And S[employer] Colorer agreeable to start Sin packet BID w/ free water flushes for wound healing. Updated recs below; RN/MD notified of Sin administration recs. Recommendations: 1) Continuous TF using Vital AF with 55 mL/hr goal. To provide 1320 mL total volume/day, 1584 kcal, 99 g protein, and 1071 mL water 2) Additional 200mL water flush Q6H per MD 3) Sin supplementation w/ free water flushes BID given unstageable wound per WOC; mix one packet Sin w/ 120ml free water and flush 40ml before and after administration 4) Prealbumin q Saturday/; Daily scaled weights 5) Bowel care per rx; routine reglan per leaf conditioner 6) monitor for change in code status Addendum: 03/23/22 at [address] Amended: Links added.
--- NOTE | 2022-03-23 18:30 | NUR ---
Patient in room CICU 2011. I have received report from FLOWER MITCHELL and had the opportunity to ask questions and assume patient care.
[2022-03-23] MEDS: insulin glargine (Lantus) pen - multi-dose SQ SCH (21:00)
[2022-03-24] VITALS (31 sets, daily range): BP systolic 82–151; BP diastolic 29–61
--- NOTE | 2022-03-24 00:09 | NUR ---
right chest tube airleak became more continuous and there is right sided crepitus above chest tube site, no change in lung sounds, equipment is secured and without kinks. patient sats >95%
[2022-03-24] MEDS: vancomycin 125mg/5ml ORAL solution 5ml UD oral syringe OGT SCH ×4 (02:36→20:40)
[2022-03-24 03:08] LABS: BASOPHILS % (AUTO) 0 % (0-1); EOSINOPHILS # (AUTO) 0.1 X10'3 (0-0.9); EOSINOPHILS % (AUTO) 0.4 % (0-6); LYMPHOCYTES # (AUTO) 0.3 X10'3 (1.1-4.8); LYMPHOCYTES % (AUTO) 1.6 % (21-51); MEAN CORPUSCULAR HEMOGLOBIN 27.6 PG (27.0-31.0); MEAN CORPUSCULAR HGB CONC 32.7 g/dL (33.0-36.5); MEAN CORPUSCULAR VOLUME 84.5 FL (78-98); MEAN PLATELET VOLUME 10.7 FL (7.4-10.4); MONOCYTES # (AUTO) 0.1 X10'3 (0-0.9); MONOCYTES % (AUTO) 0.7 % (2-12); NEUTROPHILS % (AUTO) 97.3 % (42-75); PLATELET COUNT 110 X10'3 (140-440); RED BLOOD COUNT 2.36 X10'6 (4.20-5.60); RED CELL DISTRIBUTION WIDTH 16.3 % (11.5-14.5); WHITE BLOOD COUNT 19.5 X10'3 (4.5-11.0)
[2022-03-24 03:14] LABS: ALANINE AMINOTRANSFERASE 23 U/L (12-78); ALBUMIN 0.9 G/DL (3.4-5.0); ALBUMIN/GLOBULIN RATIO 0.3 (1.1-1.5); ALKALINE PHOSPHATASE 136 IU/L (46-116); ANION GAP 12 (8-16); ASPARTATE AMINO TRANSFERASE 47 U/L (10-37); BILIRUBIN,TOTAL 0.3 MG/DL (0.1-1.0); BLOOD UREA NITROGEN 104 MG/DL (7-18); BUN/CREATININE RATIO 54.7 (6.6-38.0); CALCIUM 7.9 MG/DL (8.5-10.1); CHLORIDE 99 MMOL/L (99-107); GLUCOSE 145 MG/DL (70-104); POTASSIUM 4.1 MMOL/L (3.5-5.1); SODIUM 136 MMOL/L (135-145); TOTAL CARBON DIOXIDE 25.5 MMOL/L (24-32); eGFR 25 ML/MIN
[2022-03-24 03:45] LABS: MAGNESIUM 1.7 MG/DL (1.5-2.4); PHOSPHORUS 4.9 MG/DL (2.3-4.5)
[2022-03-24 03:55] LABS: ABG BASE EXCESS 0.9 mmol/L (-2.0-2.0); ABG HCO3 24.5 mmol/L (22.0-26.0); ABG OXYGEN SATURATION 95.8 % (94-97); ABG PO2 (T) 81.7 mmHg (75.0-100.0); ALLEN'S TEST Modified; FCOHb 0.6 % (0.0-3.9); FMetHb 0.1 % (0.0-1.5); FO2Hb 95.1 % (94-97); PATIENT TEMPERATURE 36.9; PEEP 5 cm H2O; RESPIRATORY RATE 16 b/min; TIDAL VOLUME 450 mL; TOTAL HEMOGLOBIN 7.5 G/dl (12.0-16.0)
[2022-03-24 04:06] LABS: HEMATOCRIT 19.9 % (35.0-45.0); HEMOGLOBIN 6.5 g/dl (12.0-16.0)
[2022-03-24 04:15] LABS: ANISOCYTOSIS 1+; LARGE PLATELETS MANY; PLATELET ESTIMATE DECREASED; TARGET CELLS 1+
--- NOTE | 2022-03-24 04:30 | NUR ---
Critical H/H values called to Yeison Jackson DNP, Hgb 6.5 hct 19.9, orders received to repeat H/H at 0730 and do a type and screen.
--- NOTE | 2022-03-24 06:20 | NUR ---
Problems reprioritized. Patient report given, questions answered & plan of care reviewed with ivory MITCHELL.
[2022-03-24] MEDS ORDERED: albumin (human) 25% 100 ML IV solution IV ONE (06:55)
[2022-03-24 07:39] LABS: BASOPHILS % (AUTO) 0.1 % (0-1); EOSINOPHILS # (AUTO) 0.2 X10'3 (0-0.9); EOSINOPHILS % (AUTO) 0.9 % (0-6); HEMATOCRIT 23.1 % (35.0-45.0); HEMOGLOBIN 7.6 g/dl (12.0-16.0); LYMPHOCYTES # (AUTO) 0.3 X10'3 (1.1-4.8); LYMPHOCYTES % (AUTO) 1.5 % (21-51); MEAN CORPUSCULAR HEMOGLOBIN 27.7 PG (27.0-31.0); MEAN CORPUSCULAR HGB CONC 32.8 g/dL (33.0-36.5); MEAN CORPUSCULAR VOLUME 84.6 FL (78-98); MEAN PLATELET VOLUME 10.1 FL (7.4-10.4); MONOCYTES # (AUTO) 0.1 X10'3 (0-0.9); MONOCYTES % (AUTO) 0.6 % (2-12); NEUTROPHILS # (AUTO) 16.6 X10'3 (1.8-7.7); NEUTROPHILS % (AUTO) 96.9 % (42-75); PLATELET COUNT 99 X10'3 (140-440); RED BLOOD COUNT 2.74 X10'6 (4.20-5.60); WHITE BLOOD COUNT 17.2 X10'3 (4.5-11.0)
[2022-03-24] MEDS: linezolid 600mg/300ml PREMIX 300 ML IV SCH ×2 (07:59→20:40)
[2022-03-24] MEDS: metoclopramide 5 mg/ml inj IV SCH ×2 (07:59→16:00)
[2022-03-24] MEDS: calcium acetate 667mg (PhosLO) capsule OGT SCH ×3 (07:59→20:40)
[2022-03-24] MEDS: famotidine/PF 10 mg/ml inj IV SCH (07:59)
[2022-03-24] MEDS: LEVOTHYROXINE SODIUM 100 MCG/5 ML injection IV SCH (07:59)
[2022-03-24] MEDS: heparin, porcine 5000 units/ml vial SQ SCH ×2 (08:00→20:41)
[2022-03-24] MEDS: albumin (Human) 5% 250ml 250 ML IV PRN ×4 (08:32→22:42)
--- NOTE | 2022-03-24 10:47 | NUR ---
Reassessment: Pt remains intubated and tolerating TF at goal rate WNL. Sin supplementation still pending physician approval in EMR. LBM 03/23, documented with 600 mL stool output per I&O. No changes to nutrition recommendations at this time. Will continue to follow closely. Recommendations: 1) Continuous TF using Vital AF with 55 mL/hr goal. To provide 1320 mL total volume/day, 1584 kcal, 99 g protein, and 1071 mL water 2) Additional 200mL water flush Q6H per MD 3) Sin supplementation w/ free water flushes BID given unstageable wound per WOC; mix one packet Sni with 120 mL water with 40 mL water flush before and after administration of Sin 4) Prealbumin q Saturday/; Daily scaled weights 5) Bowel care per rx; routine Reglan per bottom loader 6) monitor for change in code status Addendum: 03/24/22 at [address] Amended: Links added.
[2022-03-24] MEDS: insulin glargine (Lantus) pen - multi-dose SQ SCH (21:00)
[2022-03-25] VITALS (22 sets, daily range): BP systolic 99–171; BP diastolic 42–79
[2022-03-25] MEDS: metoclopramide 5 mg/ml inj IV SCH (00:53)
[2022-03-25] MEDS: vancomycin 125mg/5ml ORAL solution 5ml UD oral syringe OGT SCH ×2 (01:33→07:52)
[2022-03-25] MEDS: albumin (Human) 5% 250ml 250 ML IV PRN ×3 (01:34→08:47)
--- NOTE | 2022-03-25 04:03 | NUR ---
0300 vent check patient kept on high pressuring > 44 with increased RR 38 sats 90% , after suction patient with no improvement Pt Changed to Pressure control ventilation increased RR to 16 & Increased Fio2 to 40%. Patient calmed down will do am ABG closer to 4:30 am.
[2022-03-25] MEDS: FENTANYL-0.9 % NACL/PF 100 ML IV PRN (04:45)
[2022-03-25 04:49] LABS: ABG BASE EXCESS -1.7 mmol/L (-2.0-2.0); ABG HCO3 21.9 mmol/L (22.0-26.0); ABG OXYGEN SATURATION 93.9 % (94-97); ABG PCO2 (T) 31.3 mmHg (32.0-45.0); ABG PO2 (T) 71.7 mmHg (75.0-100.0); ALLEN'S TEST Modified; FCOHb 0.2 % (0.0-3.9); FMetHb 0.6 % (0.0-1.5); FO2Hb 93.1 % (94-97); PATIENT TEMPERATURE 37.5; PEEP 5 cm H2O; RESPIRATORY RATE 16 b/min; TOTAL HEMOGLOBIN 5.6 G/dl (12.0-16.0)
[2022-03-25 05:04] LABS: ALANINE AMINOTRANSFERASE 24 U/L (12-78); ALBUMIN 2.3 G/DL (3.4-5.0); ALKALINE PHOSPHATASE 137 IU/L (46-116); ANION GAP 13 (8-16); ASPARTATE AMINO TRANSFERASE 39 U/L (10-37); BILIRUBIN,TOTAL 0.6 MG/DL (0.1-1.0); BLOOD UREA NITROGEN 101 MG/DL (7-18); BUN/CREATININE RATIO 56.1 (6.6-38.0); CHLORIDE 99 MMOL/L (99-107); GLUCOSE 116 MG/DL (70-104); MAGNESIUM 1.7 MG/DL (1.5-2.4); SODIUM 136 MMOL/L (135-145); TOTAL CARBON DIOXIDE 24.5 MMOL/L (24-32); TOTAL PROTEIN 4.6 G/DL (6.4-8.2); eGFR 27 ML/MIN
[2022-03-25 05:10] LABS: BASOPHILS % (AUTO) 0.1 % (0-1); EOSINOPHILS # (AUTO) 0.1 X10'3 (0-0.9); EOSINOPHILS % (AUTO) 0.5 % (0-6); LYMPHOCYTES # (AUTO) 0.3 X10'3 (1.1-4.8); LYMPHOCYTES % (AUTO) 2.1 % (21-51); MEAN CORPUSCULAR HEMOGLOBIN 27.8 PG (27.0-31.0); MEAN CORPUSCULAR HGB CONC 31.9 g/dL (33.0-36.5); MEAN CORPUSCULAR VOLUME 87.3 FL (78-98); MEAN PLATELET VOLUME 10.3 FL (7.4-10.4); MONOCYTES # (AUTO) 0.1 X10'3 (0-0.9); MONOCYTES % (AUTO) 0.9 % (2-12); NEUTROPHILS # (AUTO) 14.8 X10'3 (1.8-7.7); NEUTROPHILS % (AUTO) 96.4 % (42-75); PLATELET COUNT 78 X10'3 (140-440); RED BLOOD COUNT 1.98 X10'6 (4.20-5.60); RED CELL DISTRIBUTION WIDTH 16.7 % (11.5-14.5); WHITE BLOOD COUNT 15.3 X10'3 (4.5-11.0)
[2022-03-25 05:17] LABS: HEMOGLOBIN 5.5 g/dl (12.0-16.0)
[2022-03-25 05:18] LABS: HEMATOCRIT 17.3 % (35.0-45.0)
[2022-03-25] MEDS ORDERED: desmopressin inj. 20 MCG in normal saline 100ml IV soln 100 ML IV ONE (06:10)
[2022-03-25] MEDS ORDERED: acetaminophen 325mg tablet PO ONE (06:15)
[2022-03-25] MEDS ORDERED: diphenhydrAMINE 50 mg/ml inj IV ONE (06:15)
[2022-03-25] MEDS: ipratropium/albuterol 3ml nebule NEB PRN (07:02)
[2022-03-25] MEDS: LEVOTHYROXINE SODIUM 100 MCG/5 ML injection IV SCH (07:45)
[2022-03-25] MEDS: linezolid 600mg/300ml PREMIX 300 ML IV SCH (07:45)
[2022-03-25] MEDS: calcium acetate 667mg (PhosLO) capsule OGT SCH (07:46)
[2022-03-25] MEDS: famotidine/PF 10 mg/ml inj IV SCH (07:48)
[2022-03-25] MEDS ORDERED: furosemide 40mg/4ml inj IV ONE (08:15)
[2022-03-25 09:32] LABS: OCCULT BLOOD STOOL POSITIVE (Neg)
[2022-03-25 09:43] LABS: APTT 37 SECONDS (22-32)
[2022-03-25] MEDS ORDERED: morphine 10mg/0.5ml (conc. morphine) oral syringe PO PRN (11:25)
[2022-03-25] MEDS ORDERED: morphine 10mg/ml inj. IV PRN (11:25)
[2022-03-25] MEDS ORDERED: acetaminophen 325mg tablet PO PRN (11:25)
[2022-03-25] MEDS ORDERED: LORazepam 2 mg/ml vial IV PRN (11:25)
--- NOTE | 2022-03-25 12:03 | NUR ---
1115- Spoke with daughter Tiarra regarding patient doing poorly, pink frothy sputum, nodding head yes to pain, nodding no to wanting to not remain ventilated, that she seems to be at the end of life. Daughter agreed to transition to comfort care. MD notified. Status changed.
--- NOTE | 2022-03-25 14:59 | NUR ---
RN IS TO DOCUMENT YES TO ALL APPLICABLE AREAS Pronouncement of : 1. Time Physician Notified:[id number] 2. Date of Death03/25/2022: 3. Time of : 1259 4. DNR/Withdraw life support documented:Y 5. Monitor strip has been placed on chart:Y 6. Assessment process is of one-minute duration and includes following criteria: a) Patient is unresponsive to all stimuli:Y b) Pupils fixed and non-reactive:Y c) Auscultation of precordium reveals absence of heart tones:Y d) Auscultation of lungs reveals absence of breath sounds:Y e) Absence of blood pressure / all vital signs:Y f) QRS complexes are not present on monitor / EKG strip:Y g) Pacer spikes without capture:NA 4. Comments:Daughter Tiarra notified. notified. No belongings noted.
== END 2022-03-25 12:59 | DRG 870 ==
LOC: ER 13:09 → ED HOLD 16:03 → EDBEDREQ 20:59 → CICU 2S 21:19
PROVIDERS: ADMIT Internal Medicine Nephrology; ATTEND Internal Medicine Nephrology
PROC: 5A1955Z Respiratory Ventilation, Greater than 96 Consecutive Hours (ICD-10-PCS; principal; 2022-03-09)
PROC: 0BH17EZ Insertion of Endotracheal Airway into Trachea, Via Natural or Artificial Opening (ICD-10-PCS; 2022-03-09)
PROC: 02HV33Z Insertion of Infusion Device into Superior Vena Cava, Percutaneous Approach (ICD-10-PCS; 2022-03-09)
PROC: 30233N1 Transfusion of Nonautologous Red Blood Cells into Peripheral Vein, Percutaneous Approach (ICD-10-PCS; 2022-03-11)
PROC: 02HV33Z Insertion of Infusion Device into Superior Vena Cava, Percutaneous Approach (ICD-10-PCS; 2022-03-14)
PROC: 0W9900Z Drainage of Right Pleural Cavity with Drainage Device, Open Approach (ICD-10-PCS; 2022-03-16)
PROC: 0W9B30Z Drainage of Left Pleural Cavity with Drainage Device, Percutaneous Approach (ICD-10-PCS; 2022-03-16)
PROC: 0W9B00Z Drainage of Left Pleural Cavity with Drainage Device, Open Approach (ICD-10-PCS; 2022-03-18)
PROC: 02HV33Z Insertion of Infusion Device into Superior Vena Cava, Percutaneous Approach (ICD-10-PCS; 2022-03-21)
PROC: B548ZZA Ultrasonography of Superior Vena Cava, Guidance (ICD-10-PCS; 2022-03-21)
DX: A41.02 Sepsis due to Methicillin resistant Staphylococcus aureus (principal); R65.21 Severe sepsis with septic shock; J15.212 Pneumonia due to Methicillin resistant Staphylococcus aureus; G93.41 Metabolic encephalopathy; E43 Unspecified severe protein-calorie malnutrition; J80 Acute respiratory distress syndrome; J93.0 Spontaneous tension pneumothorax; N17.0 Acute kidney failure with tubular necrosis; E87.4 Mixed disorder of acid-base balance; N30.00 Acute cystitis without hematuria; R04.2 Hemoptysis; E87.0 Hyperosmolality and hypernatremia; J93.82 Other air leak; L03.114 Cellulitis of left upper limb; J91.8 Pleural effusion in other conditions classified elsewhere; S40.211A Abrasion of right shoulder, initial encounter; Z20.822 Contact with and (suspected) exposure to COVID-19; E03.9 Hypothyroidism, unspecified; I50.9 Heart failure, unspecified; E86.0 Dehydration; F41.9 Anxiety disorder, unspecified; L53.9 Erythematous condition, unspecified; R54 Age-related physical debility; I95.9 Hypotension, unspecified; Z60.2 Problems related to living alone; N18.9 Chronic kidney disease, unspecified; Z66 Do not resuscitate; J98.4 Other disorders of lung; D72.810 Lymphocytopenia; M79.7 Fibromyalgia; D64.9 Anemia, unspecified; D72.823 Leukemoid reaction; W18.39XA Other fall on same level, initial encounter; E83.39 Other disorders of phosphorus metabolism; Y92.039 Unspecified place in apartment as the place of occurrence of the external cause; E87.6 Hypokalemia; Z86.711 Personal history of pulmonary embolism; Z87.01 Personal history of pneumonia (recurrent); Z90.710 Acquired absence of both cervix and uterus; Z68.26 Body mass index [BMI] 26.0-26.9, adult; Z88.8 Allergy status to other drugs, medicaments and biological substances; Z79.899 Other long term (current) drug therapy; Z88.5 Allergy status to narcotic agent; Z88.0 Allergy status to penicillin; Z90.49 Acquired absence of other specified parts of digestive tract; Z51.5 Encounter for palliative care; Y93.89 Activity, other specified; Y99.8 Other external cause status
CPT/HCPCS: 36415; 36430; 36556; 36573; 36600; 70450; 71045; 71250; 73030; 74018; 74176; 76770; 80048; 80053; 80202; 81001; 82272; 82550; 82570; 82803; 82810; 82948; 83036; 83605; 83735; 83880; 84100; 84132; 84134; 84145; 84156; 84300; 84443; 84484; 85007; 85008; 85018; 85025; 85027; 85384; 85610; 85730; 86022; 86885; 86900; 86901; 86920; 87040; 87070; 87077; 87081; 87088; 87186; 87207; 87324; 87449; 87635; 93306; 94002; 94003; 94640; 94760; 94799; 99291; 99292; A4333; A5200; A6196; A6212; A6213; A6222; A6223; A6250; A6253; A6258; A6446; A6449; A7015; A7048; A9900; C1729; C1751; C1758; C9803; G0378; J0330; J0692; J0696; J0706; J1120; J1200; J1630; J1644; J1720; J1815; J1940; J2020; J2060; J2274; J2597; J2765; J2930; J3010; J3370; J3475; J3480; J3490; J7030; J7040; J7050; J7060; J7070; J7120; J7121; P9016; P9045; P9047; Q9963